=== PATIENT | female | born 1935 | race Caucasian/White ===

== ENCOUNTER → 2016-11-26 | Day surgery (SDC) | payer OTHER ==
[2016-11-25 08:08] VITALS: Ht 153.7 cm; Wt 55.9 kg
[~2016-11-26] VITALS: Ht 153.7 cm; Wt 55.9 kg
[~2016-11-26] MED LIST: 500ML BSS 0.3ML EPI 1:1000PF IRRIG ONE; ACETAMINOPHEN 325 MG TAB PO PRN; AMVISC PLUS 0.8ML SYRINGE INT OCU ONE; APPL300T3 PO; ATROPINE SULFATE 0.1 MG/ML 5ML SYR IV PRN; AcetaZOLAMIDE 250 MG TAB PO SCH; BEE1CAP PO; BETAXOLOL HCL 0.25% OP SUSP PER DROP CHARGE OPL SCH; BRIMONIDINE TART 0.2% OP SOLN PER DROP CHARGE ONE; BSS FLUSH ONE; CALC-51 PO; CHOL1TAB42 PO; CLR10 PO; COCO1OIL2 PO; CRAN1TAB PO; CYCLOPENTOLATE HCL 1% OP SOLN PER DROP CHARGE OPL SCH; DIPH1TAB PO; ENDOCOAT 0.85ML SYRINGE INT OCU ONE; EpHEDrine SULFATE INJ 50 MG/ML AMP IV PRN; EpINEphrine INJ 1MG/ML AMP 1 MG/ML AMP ONE; GARL500T PO; HOME1SUB13 PO; HOMETAB PO; LACTATED RINGER'S 1000ML 500 ML IV SCH; LEVO75TA5 PO; LEVO88TA3 PO; LIDOCAINE 4% OP SOLN DROP CHARGE ONE; LIDOCAINE 4% OP SOLN DROP CHARGE OPL SCH; LIDOCAINE HCL 1% MPF 2 ML VIAL ONE; LISI-725 PO; LUNG SUPPORT PO; MIDAZOLAM HCL 1 MG/ML 2ML VIAL ONE; MISC1CAP69 PO; MISCCAP PO; MISCCAP80 PO; MIX: 4ML BSS 1ML EPI 1:1000 PF INSTIL ONE; MOXIFLOXACIN OPH SOLN PER DROP CHARGE ONE; MOXIFLOXACIN OPH SOLN PER DROP CHARGE OPL SCH; NURSING VERBAL MED ORDER ONE; OCUCOAT 1 ML SOLN IO ONE; ONDANSETRON INJ 2 MG/ML 2 ML VIAL IV PRN; PHENYLEPHRINE HCL 2.5% OP SOLN PER DROP CHARGE OPL SCH; POVIDONE-IODINE OP SOLN 30 ML BTL ONE; PROPARACAINE 0.5% OP SOLN PER DROP CHARGE OPL SCH; SODIUM CHLORIDE 0.9% 500ML IV SCH; TOBRAMYCIN/DEXAMETHASONE OPH OINT PER APPLN CHARGE ONE; TROPICAMIDE 1% OP SOLN PER DROP CHARGE OPL SCH; VITATAB11 PO; [UNRECOGNIZED DRUG - CODE] PO; [UNRECOGNIZED DRUG - CODE] PO; [UNRECOGNIZED DRUG - OTHER] PO; [UNRECOGNIZED DRUG - OTHER] PO
--- NOTE | 2016-11-26 08:08 | History & Physical Bridge - [place] ---
H&P Re-Evaluation Bridge Note: I have examined the patient, reviewed the History & Physical and in the interval since the performance of the History & Physical I have noted the following changes of clinical significance: No changes noted
[2016-11-26] MEDS: PHENYLEPHRINE HCL 2.5% OP SOLN PER DROP CHARGE OPL SCH ×2 (08:39→08:43)
[2016-11-26] MEDS: TROPICAMIDE 1% OP SOLN PER DROP CHARGE OPL SCH ×2 (08:40→08:44)
[2016-11-26] MEDS: CYCLOPENTOLATE HCL 1% OP SOLN PER DROP CHARGE OPL SCH ×2 (08:41→08:45)
[2016-11-26] MEDS: MOXIFLOXACIN OPH SOLN PER DROP CHARGE OPL SCH ×2 (08:42→08:47)
--- NOTE | 2016-11-26 09:24 | Discharge Instructions-SurgCtr ---
Discharge Instructions Date of Service Nov 26, 2016. Visit Reason for Visit: Left Cataract Discharge Discharge Diagnosis / Problem: lens implant left eye Discharge Goals Goal(s): Improve function Activity Recommendations Activity Limitations: resume your previous activity Lifting Limitations: no more than 10 pounds Exercise/Sports Limitations: gradually increase as tolerated May Resume Sexual Activity: when tolerated Shower/Bathe: tomorrow Driving or Machine Use: resume 1 day after discharge Anesthesia . Post Anesthesia Instructions: If you have had General Anesthesia or IV Sedation: * Do not drive today. * Resume driving when surgeon permits. * Do not make important decisions or sign legal documents today. * Call surgeon for: 1. Temperature elevations greater than 101 degrees F. 2. Uncontrollable pain. 3. Excessive bleeding. 4. Persistent nausea and vomiting. 5. Medication intolerance (nausea, vomiting or rash). * For nausea and vomiting use only clear liquids such as: tea, soda, bouillon until nausea subsides, then gradually increase diet as tolerated. * If you have any concerns or questions, call your surgeon's office. If physician is unavailable and it is an emergency, call 911 or go to the nearest emergency room. . Instructions / Follow-Up Instructions / Follow-Up ACTIVITY RECOMMENDATIONS: * Light activities. * Mild irritation and blurred vision are common for the first few days. * You may walk outside, read, watch television. * Redness around the white part of the eye is common. MEDICATIONS: Resume previous medications unless instructed otherwise by your surgeon. * Take white Diamox (Acetazolamide) tablet at 1 pm today. Start all eye drops at 1 pm today: * Eye drops (today and tomorrow): Prednisone - one drop in operative eye every 3 hours while awake Ofloxacin - one drop in operative eye every 3 hours while awake SPECIAL CARE INSTRUCTIONS: * Tape plastic shield over eye to sleep at night. Call your doctor at with any concerns or problems. FOLLOW UP VISIT: Follow-up with Dr Scott at [place] office as scheduled. Diet Recommendations Home Diet: no limitations Procedures Procedures Performed: cataract extraction with lens implant Pending Studies Studies pending at discharge: no Medical Emergencies . Who to Call and When: Medical Emergencies: If at any time you feel your situation is an emergency, please call 911 immediately. . Non-Emergent Contact Non-Emergency issues call your: Assistant Women'S Rowing Coach Call Non-Emergent contact if: your pain is not controlled [phone] . . "Provider Documentation" section prepared by Justin Scott. .
--- NOTE | 2016-11-26 09:26 | [facility] Operative Report ---
Operative Report Date of Service Nov 26, 2016. Operative Report 1. PREOPERATIVE DIAGNOSIS: Senile nuclear cataract, left eye. 2. POSTOPERATIVE DIAGNOSIS: Senile nuclear cataract, left eye. 3. PROCEDURE: Phacoemulsification of left cataract with posterior chamber lens implant, type Bausch [employer] Lomb, model MX60, power +22.5 diopters. ANESTHESIA: Local standby. SURGEON: Dr. Scott. COMPLICATIONS: None. OPERATING TIME: 10 minutes. 4. OPERATION AND FINDINGS: DESCRIPTION OF PROCEDURE: The left pupil was dilated. The anesthetic was administered using a topical technique. The left eye was prepped and draped. A speculum was placed. A clear corneal incision was formed. The chamber was filled with Amvisc Plus and Endocoat. Epinephrine solution was used. A paracentesis was placed. A capsulorrhexis was performed. The nucleus was hydrodissected. The lens was removed with phacoemulsification. Time was 5.80 seconds. The aspiration unit was used to remove the cortex. The capsule was filled with Amvisc Plus. The lens implant was folded and placed into the capsule. The incision was hydrated. The Amvisc was aspirated. The wound was secure. The chamber was deep. The pupil was round. Brimonidine, TobraDex ointment and Vigamox solution were placed. The speculum was removed. The patient was returned to the Recovery Room in stable condition. I attest to the content of the Intraoperative Record and any orders documented therein. Any exceptions are noted below. The scribe's documentation has been prepared in my presence, under my direction and personally reviewed by me in its entirety. I confirm that the note above accurately reflects all work, treatment, procedures, and medical decision making performed by me. I personally scribed for Justin Scott M.D. (LOVE) on 11/26/16 at 09:26. Electronically submitted by Maureen Bloom ([email or web address]).
[2016-11-26 09:30] VITALS: TEMP 36.8
[2016-11-26] MEDS: PROPARACAINE 0.5% OP SOLN PER DROP CHARGE OPL SCH ×2 (09:36→09:38)
[2016-11-26 10:02] VITALS: BP 148/79; PULSE 69; O2SAT 98
--- NOTE | 2016-11-26 10:03 | Anesthesia Progress Nt - [facility] ---
Anesthesia Post Op Note Date & Time Nov 26, 2016 at 10:03 Vital Signs Pain Intensity: 0 Vital Signs Past 12 Hours Date Time Temp Pulse Resp B/P (MAP) Pulse Ox O2 Delivery O2 Flow Rate FiO2 11/26/16 10:02 69 18 148/79 (102) 98 Room Air 11/26/16 09:30 36.8 73 16 133/75 (94) 96 Room Air 11/26/16 08:25 36.5 79 16 173/75 (107) 98 Room Air Notes Mental Status: alert / awake / arousable, participated in evaluation Pt Amnestic to Procedure: Yes Nausea / Vomiting: adequately controlled Pain: adequately controlled Airway Patency, RR, SpO2: stable & adequate BP & HR: stable & adequate Hydration State: stable & adequate Anesthetic Complications: no major complications apparent
== END | disposition home or self-care (01) ==
LOC: X.SURG 08:08
PROVIDERS: ATTEND Specialist
DX: H25.12 Age-related nuclear cataract, left eye (principal); I10 Essential (primary) hypertension; Z79.899 Other long term (current) drug therapy

== ENCOUNTER → 2016-12-10 | Day surgery (SDC) | payer OTHER ==
[2016-12-03 09:59] VITALS: Ht 153.7 cm; Wt 55.9 kg
[~2016-12-10] VITALS: Ht 153.7 cm; Wt 55.9 kg
[~2016-12-10] MED LIST changes: +AcetylCHOLine CHL OP SOL 1:100 2 ML BTL ONE; -BETAXOLOL HCL 0.25% OP SUSP PER DROP CHARGE OPL SCH; +BETAXOLOL HCL 0.25% OP SUSP PER DROP CHARGE OPR SCH; -CYCLOPENTOLATE HCL 1% OP SOLN PER DROP CHARGE OPL SCH; +FENTANYL CITRATE INJ 50 MCG/1 ML 2 ML VIAL ONE; -LIDOCAINE 4% OP SOLN DROP CHARGE OPL SCH; +LIDOCAINE 4% OP SOLN DROP CHARGE OPR SCH; -MOXIFLOXACIN OPH SOLN PER DROP CHARGE OPL SCH; -ONDANSETRON INJ 2 MG/ML 2 ML VIAL IV PRN; -PHENYLEPHRINE HCL 2.5% OP SOLN PER DROP CHARGE OPL SCH; -PROPARACAINE 0.5% OP SOLN PER DROP CHARGE OPL SCH; +PROPARACAINE 0.5% OP SOLN PER DROP CHARGE OPR SCH; -SODIUM CHLORIDE 0.9% 500ML IV SCH; -TROPICAMIDE 1% OP SOLN PER DROP CHARGE OPL SCH
[2016-12-10] MEDS: PHENYLEPHRINE HCL 2.5% OP SOLN PER DROP CHARGE OPR SCH ×2 (12:19→12:24)
[2016-12-10] MEDS: TROPICAMIDE 1% OP SOLN PER DROP CHARGE OPR SCH ×2 (12:20→12:25)
[2016-12-10] MEDS: CYCLOPENTOLATE HCL 1% OP SOLN PER DROP CHARGE OPR SCH ×2 (12:21→12:26)
[2016-12-10] MEDS: MOXIFLOXACIN OPH SOLN PER DROP CHARGE OPR SCH ×2 (12:22→12:32)
--- NOTE | 2016-12-10 13:38 | Discharge Instructions-SurgCtr ---
Discharge Instructions Date of Service Dec 10, 2016. Visit Reason for Visit: Right Cataract Discharge Discharge Diagnosis / Problem: lens implant right eye Discharge Goals Goal(s): Improve function Activity Recommendations Activity Limitations: resume your previous activity Lifting Limitations: no more than 10 pounds Exercise/Sports Limitations: gradually increase as tolerated May Resume Sexual Activity: when tolerated Shower/Bathe: tomorrow Driving or Machine Use: resume 1 day after discharge Anesthesia . Post Anesthesia Instructions: If you have had General Anesthesia or IV Sedation: * Do not drive today. * Resume driving when surgeon permits. * Do not make important decisions or sign legal documents today. * Call surgeon for: 1. Temperature elevations greater than 101 degrees F. 2. Uncontrollable pain. 3. Excessive bleeding. 4. Persistent nausea and vomiting. 5. Medication intolerance (nausea, vomiting or rash). * For nausea and vomiting use only clear liquids such as: tea, soda, bouillon until nausea subsides, then gradually increase diet as tolerated. * If you have any concerns or questions, call your surgeon's office. If physician is unavailable and it is an emergency, call 911 or go to the nearest emergency room. . Instructions / Follow-Up Instructions / Follow-Up ACTIVITY RECOMMENDATIONS: * Light activities. * Mild irritation and blurred vision are common for the first few days. * You may walk outside, read, watch television. * Redness around the white part of the eye is common. MEDICATIONS: Resume previous medications unless instructed otherwise by your surgeon. * Take white Diamox (Acetazolamide) tablet at 3 pm today. Start all eye drops at 3 pm today: * Eye drops (today and tomorrow): Prednisone - one drop in operative eye every 3 hours while awake Ofloxacin - one drop in operative eye every 3 hours while awake SPECIAL CARE INSTRUCTIONS: * Tape plastic shield over eye to sleep at night. Call your doctor at with any concerns or problems. FOLLOW UP VISIT: Follow-up with Dr Scott at [place] office as scheduled. Diet Recommendations Home Diet: no limitations Procedures Procedures Performed: cataract extraction with lens implant Pending Studies Studies pending at discharge: no Medical Emergencies . Who to Call and When: Medical Emergencies: If at any time you feel your situation is an emergency, please call 911 immediately. . Non-Emergent Contact Non-Emergency issues call your: Food Broker Call Non-Emergent contact if: your pain is not controlled [phone] . . "Provider Documentation" section prepared by Justin Scott. .
--- NOTE | 2016-12-10 13:43 | [facility] Operative Report ---
Operative Report Date of Service Dec 10, 2016. Operative Report 1. PREOPERATIVE DIAGNOSIS: Senile nuclear cataract, right eye. 2. POSTOPERATIVE DIAGNOSIS: Senile nuclear cataract, right eye. 3. PROCEDURE: Phacoemulsification of right cataract with posterior chamber lens implant, type Bausch [employer] Lomb, model MX60, power +21.5 diopters. ANESTHESIA: Local standby. SURGEON: Dr. Scott. COMPLICATIONS: None. OPERATING TIME: 15 minutes. 4. OPERATION AND FINDINGS: DESCRIPTION OF PROCEDURE: The right pupil was dilated. The anesthetic was administered using a topical technique. The right eye was prepped and draped. A speculum was placed. A clear corneal incision was formed. The chamber was filled with Amvisc Plus and Endocoat. Epinephrine solution was used. A paracentesis was placed. A capsulorrhexis was performed. The nucleus was hydrodissected. A dense lens was removed with phacoemulsification. Time was 10.08 seconds. The aspiration unit was used to remove the cortex. There was an opening in the posterior capsule without vitreous to the incision. The capsule was filled with Amvisc Plus. The lens implant was folded and placed into the capsule. The incision was hydrated. The Amvisc was aspirated. The wound was secured with ReSure. The chamber was deep. Miochol was irrigated into the chamber. The pupil was round. Brimonidine, TobraDex ointment and Vigamox solution were placed. The speculum was removed. The patient was returned to the Recovery Room in stable condition. I attest to the content of the Intraoperative Record and any orders documented therein. Any exceptions are noted below. The scribe's documentation has been prepared in my presence, under my direction and personally reviewed by me in its entirety. I confirm that the note above accurately reflects all work, treatment, procedures, and medical decision making performed by me. I personally scribed for Justin Scott M.D. (LOVE) on 12/10/16 at 13:43. Electronically submitted by Maureen LUBIN).
[2016-12-10 13:44] VITALS: TEMP 36.5
--- NOTE | 2016-12-10 13:46 | Anesthesia Progress Nt - [facility] ---
Anesthesia Post Op Note Date & Time Dec 10, 2016 at 13:46 Vital Signs Pain Intensity: 0 Vital Signs Past 12 Hours Date Time Temp Pulse Resp B/P (MAP) Pulse Ox O2 Delivery O2 Flow Rate FiO2 12/10/16 12:07 36.8 78 16 162/75 (104) 97 Room Air Notes Mental Status: alert / awake / arousable, participated in evaluation Pt Amnestic to Procedure: Yes Nausea / Vomiting: adequately controlled Pain: adequately controlled Airway Patency, RR, SpO2: stable & adequate BP & HR: stable & adequate Hydration State: stable & adequate Anesthetic Complications: no major complications apparent
[2016-12-10] MEDS: PROPARACAINE 0.5% OP SOLN PER DROP CHARGE OPR SCH ×2 (13:52→13:54)
[2016-12-10 14:19] VITALS: BP 132/66; PULSE 71; O2SAT 96
== END | disposition home or self-care (01) ==
LOC: X.SURG 11:11
PROVIDERS: ATTEND Specialist
DX: H25.11 Age-related nuclear cataract, right eye (principal); I10 Essential (primary) hypertension

== ENCOUNTER 2019-02-03 06:32 | Inpatient (IN) ==
--- NOTE | 2019-01-09 19:54 | PAT Medication Instructions ---
Medication Instructions Date of Service January 09, 2019 Home Medications levothyroxine 75 mcg PO QAM 01/07/19 [History Confirmed 01/07/19] Take morning of surgery With a small sip of water, OTHERWISE NOTHING TO EAT OR DRINK AFTER MIDNIGHT: levothyroxine 75 mcg PO QAM 01/07/19 [History Confirmed 01/07/19] Other Notes If you have any questions please call us at [phone] or [phone] or [phone] or [phone]
--- NOTE | 2019-01-10 11:11 | Anesthesiology Consultation ---
Date of Service January 10, 2019 Assessment & Plan (1) Encounter for pre-operative examination: Chart Review Chart Review: Pending: Refer to Additional Notes / Consult section (pending preop testing (labs, EKG, CXR)) and Patient seen in Pre Admission Testing Teaching & Discussion Pre-Anesthesia Teaching/Discussion Notes: Instructed NPO after midnight before surgery,except medications with 15 cc of water. Medication instructions provide d according to the PAT guidelines. History Surgery Operation Date: 02/03/19 13:20 Proposed Procedures p Left Total Knee Arthroplasty - Nash Strickland MD Height/Weight Height: 5 ft Weight: 57.6 kg Allergies Allergy/AdvReac Type Severity Reaction Status Date / Time No Known Allergies Allergy Unverified 01/07/19 15:22 Medications Home Medications Medication Instructions Recorded Confirmed Last Taken levothyroxine 75 mcg PO QAM 01/07/19 01/07/19 Unknown Cardio Cover 1 tab PO QAM 01/10/19 01/10/19 Unknown Lung Support 1 tab PO BID 01/10/19 01/10/19 Unknown calcium carbonate [Calcium 500] 1,000 mg PO BID 01/10/19 01/10/19 Unknown szzrbktdf-ymadonaj-zsh-hyalur 1 tab PO BID 01/10/19 01/10/19 Unknown [Joint Health] cholecalciferol (vitamin D3) 5,000 unit PO HS 01/10/19 01/10/19 Unknown [Vitamin D3] cod liver oil 1 cap PO BID 01/10/19 01/10/19 Unknown cranberry 500 mg PO DAILY 01/10/19 01/10/19 Unknown garlic 500 mg PO BID 01/10/19 01/10/19 Unknown lactobacillus combination no.4 3,000 mmu cells PO QAM 01/10/19 01/10/19 Unknown [Probiotic] magnesium oxide 400 mg PO BID 01/10/19 01/10/19 Unknown milk uwlpaps-IEF-ddtixc-turmer 1 mg PO BID 01/10/19 01/10/19 Unknown [Liver Complex] potassium 99 mg PO BID 01/10/19 01/10/19 Unknown Past Medical History Medical History GERD (gastroesophageal reflux disease) rare Hearing deficit B/L KNAPP History of skin cancer History of thyroid cancer s/p surgery, radioactive iodine treatment Hyperlipidemia Hypothyroidism s/p surgery, radioactive iodine treatment Kidney stone Osteoarthritis Exercise / Class Metabolic Activity III < 4 Walking/Shop/Light housework Past Family History Family History Sister Family history of diabetes mellitus Past Surgical History Surgical History History of D&C History of arthroplasty of right knee History of bladder repair surgery History of cardiac cath 10+ years ago= no stents History of cataract surgery History of colonoscopy History of lumpectomy of left breast "BENIGN" History of repair of rectocele History of thyroidectomy partial- subsequently removed remaining portion Status post IGGY-BSO Status post surgical removal of malignant neoplasm of skin Past Anesthesia History No Hx of Anesthesia Complications and No Family Hx of Anesthesia Complications History of PONV No Hx of PONV and No Hx of Motion Sickness Social History Smoking Status: Never smoker Do You Dip or Chew Tobacco: No Hx Alcohol Use: No Hx Substance Use: No substance use type: does not use Review of Systems Rare reflux. Patient denies chest pain, shortness of breath, cough, wheezing, palpitations. Physical Exam Vital Signs VITALS BP 175/76; manual recheck on right: 158/68 (Patient advised to followup with PCP regarding elevated BP) P 69 TEMP 98.2 SP02 96%RA RESP 18 PHYSICAL Full neck and c-spine range of motion. Full TMJ range of motion. TMD 4 finger breaths Mallampati Score 1 Dentition: partials upper/lower Lungs: clear throughout to auscultation Cardiac: regular rate and rhythm, I/ systolic murmur Spine: normal Carotid arteries: negative bruit Extremities: no edema
--- NOTE | 2019-01-10 12:01 | XRay Report ---
XR chest Pre-admission PA/Lat HISTORY: 83 years-old Female PAT preoperative exam. No acute chest complaints COMPARISON: None available TECHNIQUE: PA and lateral views of the chest FINDINGS: Cardiomediastinal and hilar silhouettes are within normal limits. Calcified plaque of the thoracic ao rtic arch. Mild linear subsegmental bibasilar opacities suggest areas of atelectasis/scarring. No pne umothorax, pleural effusion, focal airspace consolidation or overt pulmonary edema. Mild hyperinflati on with diaphragmatic flattening. Degenerative changes of the shoulders and spine. IMPRESSION: No acute process. The above report was generated using voice recognition software. It may contain grammatical, syntax o r spelling errors. Electronically signed by: Vamsi De La Rosa M.D. 01/10/2019 12:00 PM
[2019-01-10 12:59] LABS: Basophils # (auto) 0.01 K/uL (0-0.2); Basophils % (auto) 0.2 %; Eosinophils # (auto) 0.03 K/uL (0-0.5); Eosinophils % (auto) 0.6 %; Hematocrit (blood only) 44.7 % (37-47); Hemoglobin 14.8 g/dL (12.0-16.0); Immature Granulocytes # (auto) 0.03 K/uL (0.00-0.02); Immature Granulocytes % (auto) 0.6 %; Lymphocytes # (auto) 0.69 K/uL (1.2-3.4); Lymphocytes % (auto) 13.7 %; Mean Corpuscular Hemoglobin 30.7 pg (25-34); Mean Corpuscular Hgb Conc 33.1 g/dL (32-36); Mean Corpuscular Volume 92.7 fL (80-100); Mean Platelet Volume 10.6 fL (7.4-10.4); Monocytes # (auto) 0.47 K/uL (0.11-0.59); Monocytes % (auto) 9.3 %; Neutrophils % (auto) 75.6 %; Platelet Count 209 K/uL (130-400); RDW Coefficient of Variation 12.8 % (11.5-14.5); RDW Standard Deviation 43.1 fL (36.4-46.3); Red Blood Count 4.82 M/uL (4.2-5.4); White Blood Count 5.03 K/uL (4.8-10.8)
[2019-01-10 13:13] LABS: Appearance Urine Cloudy (Clear); Bacteria Urine Automated Negative (Negative); Bilirubin Urine Negative (Negative); Blood Urine Trace (Negative); Cast Urine Automated 0 /lpf (0-5); Color Urine Yellow; Glucose Urine UA Negative (Negative); Ketones Urine Negative (Negative); Leukocyte Esterase Urine Negative (Negative); Nitrite Urine Negative (Negative); Partial Thromboplastin Ratio 1.1; Partial Thromboplastin Time 30.9 Seconds (21.0-31.0); Protein Urine Negative (Negative); Prothrombin Time 10.3 Seconds (9.0-12.0); Specific Gravity Urine 1.018 (1.000-1.030); Urobilinogen Urine Negative (Negative); pH Urine 7.5 (4.5-7.5)
[2019-01-10 13:25] LABS: BUN Creatinine Ratio 20.8 (10-20); Calcium 8.9 mg/dl (8.5-10.1); Creatinine Clr Calc Pharmacy 44.6 ml/min; Est GFR (African American) 84.1; Est GFR (Non-African American) 72.5; Potassium 3.6 mmol/L (3.5-5.1)
[2019-01-10 13:30] LABS: Estimated Average Glucose 126 mg/dl
--- NOTE | 2019-01-13 15:25 | History & Physical Report ---
Date of Service January 13, 2019 Assessment & Plan (1) Primary osteoarthritis of left knee: Treatment options were discussed. Patient has failed conservative measures as above. She would like to proceed with surgical management. Risks, benefits and alternatives to surgery including but not limited to infection, DVT, pain, stiffness, need for revision surgery, damage to blood vessels, damage to nerves, PE, , were discussed with the patient and they wish to proceed. Plan will be for left total knee arthroplasty on 02/03/19. Plans on inpatient rehab at [facility]-currently lives at [facility] in a [facility] [place]. Will plan on aspirin 81mg BID x 30 days post operatively. All questions were answered. She will follow up in the office post operatively. History of Present Illness Chief Complaint: Left knee pain Primary Care Provider: Dinoraana Andujar Patient is 83 year old female with PMHx significant for high cholesterol, GERD, kidney stones, thyroid Ca, hypothyroidism with complaints of bilateral knee pain, left worse than right. Previously has had cortisone injections without any relief. Her pain interferes with her activities of daily living. She would like to proceed with knee replacement. Patient denies headaches, sweats, fevers, chills, double vision, blurred vision, cough, sore throat, dysphagia, chest pain, sob, wheezing, n/v/d/c, numbness, tingling, fatigue, urinary symptoms, mood disorders. ROS positive for bilateral knee pain and stiffness. Allergies Allergy/AdvReac Type Severity Reaction Status Date / Time No Known Allergies Allergy Unverified 01/07/19 15:22 Home Medications Home Medications Medication Instructions Recorded Confirmed Type levothyroxine 75 mcg PO QAM 01/07/19 01/07/19 History Cardio Cover 1 tab PO QAM 01/10/19 01/10/19 History Lung Support 1 tab PO BID 01/10/19 01/10/19 History calcium carbonate [Calcium 500] 1,000 mg PO BID 01/10/19 01/10/19 History byxqnwigu-bdpnodbm-tjj-hyalur 1 tab PO BID 01/10/19 01/10/19 History [Joint Health] cholecalciferol (vitamin D3) 5,000 unit PO HS 01/10/19 01/10/19 History [Vitamin D3] cod liver oil 1 cap PO BID 01/10/19 01/10/19 History cranberry 500 mg PO DAILY 01/10/19 01/10/19 History garlic 500 mg PO BID 01/10/19 01/10/19 History lactobacillus combination no.4 3,000 mmu cells PO QAM 01/10/19 01/10/19 History [Probiotic] magnesium oxide 400 mg PO BID 01/10/19 01/10/19 History milk evrembs-LEB-xmaifd-turmer 1 mg PO BID 01/10/19 01/10/19 History [Liver Complex] potassium 99 mg PO BID 01/10/19 01/10/19 History Past Med/Surg History Medical History GERD (gastroesophageal reflux disease) rare Hearing deficit B/L KNAPP History of skin cancer History of thyroid cancer s/p surgery, radioactive iodine treatment Hyperlipidemia Hypothyroidism s/p surgery, radioactive iodine treatment Kidney stone Osteoarthritis Surgical History History of D&C History of arthroplasty of right knee History of bladder repair surgery History of cardiac cath 10+ years ago= no stents History of cataract surgery History of colonoscopy History of lumpectomy of left breast "BENIGN" History of repair of rectocele History of thyroidectomy partial- subsequently removed remaining portion Status post IGGY-BSO Status post surgical removal of malignant neoplasm of skin Family History Sister Family history of diabetes mellitus Social History Preferred Language: [place] Communication Ability: Effective Bathing Suit Maker Required: No Beliefs That Will Affect Care: None Current Living Situation: Alone Other Information That Helps Us Care for You: No Feels Safe at Home: Yes Safety Concerns: Feels Safe At This Time Smoking Status: Never smoker Do You Dip or Chew Tobacco: No ; Second Hand Exposure: Yes (PREVIOUS EXPOSURE AT THE WORKPLACE) ; Hx Alcohol Use: No Hx Substance Use: No Review of Systems All systems reviewed & are unremarkable except as noted in HPI & below Physical Exam Constitutional: well developed and well nourished; no acute distress Eyes: PERRL, conjunctivae normal, anicteric sclerae ENMT: external ear and nose normal, oropharynx normal Neck: trachea midline, no thyromegaly Respiratory: normal respiratory effort, lungs clear to auscultation Cardiovascular: RRR, no murmur, no edema Musculoskeletal: Left knee-Tenderness medial joint line, ROM 0-130 with crepitus, mild effusion. Stable to valgus and varus stress tests. Yaritza's positive. Skin: no rashes, warm and dry Neurologic: patellar DTR's 2+ bilat, sensation intact Psychiatric: A+Ox3, euthymic affect Results & Data Laboratory Results Lab Results 01/10/19 01/10/19 01/10/19 Range/Units 11:43 11:43 11:43 WBC 5.03 (4.8-10.8) K/uL RBC 4.82 (4.2-5.4) M/uL Hgb 14.8 (12.0-16.0) g/dL Hct 44.7 (37-47) % MCV 92.7 (80-100) fL MCH 30.7 (25-34) pg MCHC 33.1 (32-36) g/dL RDW Std Deviation 43.1 (36.4-46.3) fL RDW Coeff of Michelet 12.8 (11.5-14.5) % Plt Count 209 (130-400) K/uL MPV 10.6 H (7.4-10.4) fL Immature Gran % (Auto) 0.6 % Neut % (Auto) 75.6 % Lymph % (Auto) 13.7 % [place] % (Auto) 9.3 % Eos % (Auto) 0.6 % Baso % (Auto) 0.2 % Immature Gran # (Auto) 0.03 H (0.00-0.02) K/uL Neut # (Auto) 3.80 (1.4-6.5) K/uL Lymph # (Auto) 0.69 L (1.2-3.4) K/uL [place] # (Auto) 0.47 (0.11-0.59) K/uL Eos # (Auto) 0.03 (0-0.5) K/uL Baso # (Auto) 0.01 (0-0.2) K/uL PT 10.3 (9.0-12.0) Seconds INR 1.0 (0.9-1.1) APTT 30.9 (21.0-31.0) Seconds PTT Ratio 1.1 Sodium 138 (136-145) mmol/L Potassium 3.6 (3.5-5.1) mmol/L Chloride 102 (98-107) mmol/L Carbon Dioxide 27 (21-32) mmol/L Anion Gap 9.0 (3-11) BUN 16 (7-18) mg/dl Creatinine 0.76 (0.6-1.2) mg/dl Est Cr Clr Drug Dosing 44.6 ml/min Est GFR ( Amer) 84.1 Est GFR (Non-Af Amer) 72.5 BUN/Creatinine Ratio 20.8 H (10-20) Glucose 87 (70-99) mg/dl Estimat Average Glucose mg/dl Hemoglobin A1c (4.5-5.6) % Calcium 8.9 (8.5-10.1) mg/dl Albumin 4.0 (3.4-5.0) gm/dl Urine Color Urine Appearance (Clear) Urine pH (4.5-7.5) Ur Specific [place] (1.000-1.030) Urine Protein (Negative) Urine Glucose (UA) (Negative) Urine Ketones (Negative) Urine Blood (Negative) Urine Nitrite (Negative) Urine Bilirubin (Negative) Urine Urobilinogen (Negative) Ur Leukocyte Esterase (Negative) Urine WBC (Auto) (0-5) /hpf Urine RBC (Auto) (0-4) /hpf U Hyaline Cast (Auto) (0-5) /lpf U Epithel Cells (Auto) (0-5) /lpf Urine Bacteria (Auto) (Negative) Blood Type Antibody Screen 01/10/19 01/10/19 01/10/19 Range/Units 11:43 11:43 11:43 WBC (4.8-10.8) K/uL RBC (4.2-5.4) M/uL Hgb (12.0-16.0) g/dL Hct (37-47) % MCV (80-100) fL MCH (25-34) pg MCHC (32-36) g/dL RDW Std Deviation (36.4-46.3) fL RDW Coeff of Michelet (11.5-14.5) % Plt Count (130-400) K/uL MPV (7.4-10.4) fL Immature Gran % (Auto) % Neut % (Auto) % Lymph % (Auto) % [place] % (Auto) % Eos % (Auto) % Baso % (Auto) % Immature Gran # (Auto) (0.00-0.02) K/uL Neut # (Auto) (1.4-6.5) K/uL Lymph # (Auto) (1.2-3.4) K/uL [place] # (Auto) (0.11-0.59) K/uL Eos # (Auto) (0-0.5) K/uL Baso # (Auto) (0-0.2) K/uL PT (9.0-12.0) Seconds INR (0.9-1.1) APTT (21.0-31.0) Seconds PTT Ratio Sodium (136-145) mmol/L Potassium (3.5-5.1) mmol/L Chloride (98-107) mmol/L Carbon Dioxide (21-32) mmol/L Anion Gap (3-11) BUN (7-18) mg/dl Creatinine (0.6-1.2) mg/dl Est Cr Clr Drug Dosing ml/min Est GFR ( Amer) Est GFR (Non-Af Amer) BUN/Creatinine Ratio (10-20) Glucose (70-99) mg/dl Estimat Average Glucose 126 mg/dl Hemoglobin A1c 6.0 H (4.5-5.6) % Calcium (8.5-10.1) mg/dl Albumin (3.4-5.0) gm/dl Urine Color Yellow Urine Appearance Cloudy A (Clear) Urine pH 7.5 (4.5-7.5) Ur Specific [place] 1.018 (1.000-1.030) Urine Protein Negative (Negative) Urine Glucose (UA) Negative (Negative) Urine Ketones Negative (Negative) Urine Blood Trace H (Negative) Urine Nitrite Negative (Negative) Urine Bilirubin Negative (Negative) Urine Urobilinogen Negative (Negative) Ur Leukocyte Esterase Negative (Negative) Urine WBC (Auto) 1-5 (0-5) /hpf Urine RBC (Auto) 5-10 H (0-4) /hpf U Hyaline Cast (Auto) 0 (0-5) /lpf U Epithel Cells (Auto) 10-20 H (0-5) /lpf Urine Bacteria (Auto) Negative (Negative) Blood Type O Positive Antibody Screen NEGATIVE Diagnostic Findings Left knee radiographs: Tricompartmental degenerative changes, [id number] lateral compartment with osteophyte formation off lateral femoral condyle and lateral tibial plateau.
[~2019-02-03 06:32] MED LIST changes: -500ML BSS 0.3ML EPI 1:1000PF IRRIG ONE; -ACETAMINOPHEN 325 MG TAB PO PRN; +ACETAMINOPHEN 500 MG TAB PO SCH; -AMVISC PLUS 0.8ML SYRINGE INT OCU ONE; -APPL300T3 PO; -ATROPINE SULFATE 0.1 MG/ML 5ML SYR IV PRN; -AcetaZOLAMIDE 250 MG TAB PO SCH; -AcetylCHOLine CHL OP SOL 1:100 2 ML BTL ONE; -BEE1CAP PO; -BETAXOLOL HCL 0.25% OP SUSP PER DROP CHARGE OPR SCH; -BRIMONIDINE TART 0.2% OP SOLN PER DROP CHARGE ONE; -BSS FLUSH ONE; -CALC-51 PO; +CEFAZOLIN 1000MG 1,000 MG/7.5 ML SYR IV SCH; -CHOL1TAB42 PO; -CLR10 PO; -COCO1OIL2 PO; -CRAN1TAB PO; +CeleBREX 200 MG CAP PO SCH; -DIPH1TAB PO; -ENDOCOAT 0.85ML SYRINGE INT OCU ONE; -EpHEDrine SULFATE INJ 50 MG/ML AMP IV PRN; -EpINEphrine INJ 1MG/ML AMP 1 MG/ML AMP ONE; +FAMOTIDINE 20 MG TAB PO SCH; -FENTANYL CITRATE INJ 50 MCG/1 ML 2 ML VIAL ONE; +GABAPENTIN 900 MG DOSE PO SCH; -GARL500T PO; -HOME1SUB13 PO; -HOMETAB PO; -LACTATED RINGER'S 1000ML 500 ML IV SCH; -LEVO75TA5 PO; -LEVO88TA3 PO; -LIDOCAINE 4% OP SOLN DROP CHARGE ONE; -LIDOCAINE 4% OP SOLN DROP CHARGE OPR SCH; -LIDOCAINE HCL 1% MPF 2 ML VIAL ONE; -LISI-725 PO; +LR 500ML BOLUS, THEN 15ML/HR IV SCH; -LUNG SUPPORT PO; +METOCLOPRAMIDE HCL 10 MG TABLET PO SCH; -MIDAZOLAM HCL 1 MG/ML 2ML VIAL ONE; -MISC1CAP69 PO; -MISCCAP PO; -MISCCAP80 PO; -MIX: 4ML BSS 1ML EPI 1:1000 PF INSTIL ONE; -MOXIFLOXACIN OPH SOLN PER DROP CHARGE ONE; -NURSING VERBAL MED ORDER ONE; -OCUCOAT 1 ML SOLN IO ONE; +OXYCODONE HCL 10 MG TABCR (OXYCONTIN) PO SCH; -POVIDONE-IODINE OP SOLN 30 ML BTL ONE; -PROPARACAINE 0.5% OP SOLN PER DROP CHARGE OPR SCH; +ROPIVACAINE 0.5% HCL/PF 150 MG, BUPIVACAINE 0.5% MPF 30 ML, EPINEPHrine 30MG/30ML (OR U... INSTIL SCH; -TOBRAMYCIN/DEXAMETHASONE OPH OINT PER APPLN CHARGE ONE; +TRANEXAMIC ACID 1,000 MG **IV Intra-op IV SCH; +TRANEXAMIC ACID 1,000 MG **IV Pre-op IV SCH; -VITATAB11 PO; -[UNRECOGNIZED DRUG - CODE] PO; -[UNRECOGNIZED DRUG - CODE] PO; -[UNRECOGNIZED DRUG - OTHER] PO; -[UNRECOGNIZED DRUG - OTHER] PO
[2019-02-03] MEDS ORDERED: BUPIVACAINE/EPINEPHRINE 0.25% 1:200,000 30 ML VIAL ONE (06:34)
[2019-02-03] MEDS ORDERED: BUPIVACAINE 0.5 % 5 MG/1 ML PF 10ML VIAL ONE (06:34)
--- NOTE | 2019-02-03 06:58 | History & Physical Bridge Note ---
Date of Service February 03, 2019 History & Physical Bridge Note I have examined the patient, reviewed the History & Physical and in the interval since the performance of the History & Physical I have noted the following changes of clinical significance: no changes noted
[2019-02-03] MEDS ORDERED: MIDAZOLAM HCL 1 MG/ML 2ML VIAL ONE (07:28)
[2019-02-03] MEDS ORDERED: fentaNYL citrate 100 MCG/2 ML VIAL ONE (07:28)
[2019-02-03] MEDS ORDERED: BACITRACIN INJ 50,000 UNIT VIAL ONE (08:14)
[2019-02-03] MEDS ORDERED: ORTHO JOINT ANESTHETIC ONE (08:14)
[2019-02-03] MEDS ORDERED: fentaNYL citrate 100 MCG/2 ML VIAL IV PRN (08:34)
[2019-02-03] MEDS ORDERED: ONDANSETRON INJ 2 MG/ML 2 ML VIAL IV PRN ×2 (08:34→12:38)
[2019-02-03] MEDS ORDERED: ePHEDrine sulfate 50 MG/ML AMP IV PRN (08:34)
[2019-02-03] MEDS ORDERED: HYDROmorphone INJ 1 MG/ML SYRINGE IV PRN (08:34)
[2019-02-03] MEDS ORDERED: ATROPINE SULFATE 0.1 MG/ML 10ML SYR IV PRN (08:34)
[2019-02-03] MEDS ORDERED: LIDOCAINE HCL 2% 2 ML VIAL/AMP(20MG/ML) INFIL ONE (09:52)
[2019-02-03] MEDS ORDERED: ONDANSETRON INJ 2 MG/ML 2 ML VIAL ONE (09:52)
[2019-02-03] MEDS ORDERED: PROPOFOL IV EMULSION 10 MG/ML 20 ML VIAL IV ONE (09:52)
[2019-02-03] MEDS ORDERED: DEXAMETHASONE SOD INJ 4 MG/ML VIAL ONE (09:52)
--- NOTE | 2019-02-03 10:41 | Operative Report ---
Post Operative Report Pre & Post Diagnosis Operation Date: 02/03/19 09:30 Pre-Op Diagnosis: Osteoarthritis, Left Knee Post-Op Diagnosis: Osteoarthritis, Left Knee I identified the patient and participated in the time-out.: Yes Procedure Operation Date: 02/03/19 09:30 Actual Procedures p Left Total Knee Arthroplasty(Left) - Nash Strickland MD Surgeon Nash Strickland MD Efficiency Clerk Pritesh Rawls PA-C Estimated Blood Loss 20 Findings Consistent with Post-Op Diagnosis Specimens Bone and tissue Drains 2 Hemovac Anesthesia Type Spinal MAC Complications none Disposition Accompanied Patient To Recovery: No Disposition: Recovery Room Indications The patient is an 83-year-old female long-standing arthritic change in both knees. She has pvpi-ut-[id number] lateral compartment osteophyte formation of all 3 compartments. She is failed conservative measures including injection, anti- inflammatories and rehab. She wishes to proceed with a left total knee arthropl asty. Description of Procedure Risks benefits and alternatives of surgery including but not limited to infection, DVT, pain, stiffness, need for surgery, damage to blood vessels, damage to nerves or risks of anesthesia were discussed with the patient and they wished to proceed. The patient was identified and the laterality was confirmed and marked. They received a preoperative antibiotic as well as a spinal anesthetic and an abductor canal block. A well-padded tourniquet was applied and then the limb was prepped and draped in standard manner with ChloraPrep. The limb was exsanguinated and the tourniquet was inflated. I made a standard anterior incision. I sharply incised the skin then utilized Bovie electrocautery to achieve hemostasis. I made a medial parapatellar arthrotomy and mobilized the patella laterally. I then excised the anterior horns of the medial and lateral meniscus as well as the infrapatellar fat pad. I elevated a portion of the MCL off of the tibia. I then pinned into place a patient-matched distal femoral cutting guide and made my distal femoral resection. I then pinned into place the 5 in 1 femoral cutting guide. I made my anterior, posterior and chamfer cuts. I then excised the cruciates and the remaining portions of the menisci. I then pinned into place a patient- matched tibial cutting guide and made my tibial resection. I then pinned into place the tibial plate a utilizing alignment bailee to confirm rotation. I then cut for the post. Utilizing a lamina legal manager and I then removed posterior osteophytes off the femur. I then placed a trial femur into position and cut for the trochlear component. I then sequentially trialed to size the polyethylene until there was good soft tissue balancing and range of motion. I then prepared the patella with a freehand cut utilizing sagittal saw. I sized and drilled for the patella. There was lateral tracking the patella. A lateral release was required. There is good tracking after the lateral release was performed. All the trial components were removed. The deep tissues were anesthetized with an ortho mix solution. Then with Simplex HV with gentamicin cement, I cemented my definitive components. Definitive components, Leong and Nephew Jerry 2: Femur 3 Tibia 2 Poly 11 Patella 32 oval A betadine soak was performed. A deep drain was placed. The arthrotomy was closed with interrupted #1 Vicryl suture subcutaneous tissue was closed with interrupted 2-0 Vicryl suture. The skin was closed with with edvin. An Acticoat and Mau dressing were placed. Sterile dressings were applied. All needle and sponge counts were correct at the end of the procedure patient was transferred to the PACU in stable condition without apparent complication. The PA-C was necessary for assistance with procedure for assistance in positioning, prepping, draping, retraction and closure. I attest to the content of the Intraoperative Record and any orders documented therein. Any exceptions are noted below.
--- NOTE | 2019-02-03 11:52 | Anesthesiology Progress Note ---
Date of Service February 03, 2019 Anesthesia Post Procedure Vital Signs Vital Signs: Temp Pulse Pulse Resp BP Pulse Ox 02/03/19 11:45 86 13 147/67 H 95 02/03/19 11:35 88 16 146/68 H 99 02/03/19 11:25 87 14 144/63 H 99 02/03/19 11:17 36.2 C L 99 H 13 148/62 H 98 02/03/19 07:20 36.6 C 88 20 179/81 H 95 Pain Intensity Left Knee: Pain Intensity: 0 Transfer of Care Handoff Completed per policy Notes Mental Status: alert / awake / arousable and participated in evaluation Patient Amnestic to Procedure: Yes Nausea / Vomiting: adequately controlled Pain: adequately controlled Airway Patency, RR, SpO2: stable & adequate BP & HR: stable & adequate Hydration State: stable & adequate Anesthetic Complications: no major complications apparent and Pt Satisfied with anesthetic care
--- NOTE | 2019-02-03 12:01 | XRay Report ---
XR knee LT 1 or 2V routine CLINICAL HISTORY: Surgical Post Op COMPARISON: None FINDINGS: Alignment of the total left knee arthroplasty is anatomic. There is no fracture or unexpec soledad radiopaque foreign body. Surgical drains are in place. There are skin edvin. IMPRESSION: Expected findings following total left knee arthroplasty. Electronically signed by: Flako Martinez M.D. 02/03/2019 12:00 PM
[2019-02-03] MEDS ORDERED: SODIUM CHLORIDE 0.9% 1000ML 1,000 ML IV SCH (12:38)
[2019-02-03] MEDS ORDERED: BISACODYL 10 MG SUPP PR PRN (12:38)
[2019-02-03] MEDS ORDERED: MAGNESIUM HYDROXIDE SUSP 30 ML UDC PO PRN (12:38)
[2019-02-03] MEDS ORDERED: HYDROmorphone INJ 0.5 MG/0.5 ML SYR IV PRN (12:38)
[2019-02-03] MEDS ORDERED: NALOXONE HCL 0.4 MG/1 ML VIAL/CARP IV PRN (12:38)
[2019-02-03] MEDS: ACETAMINOPHEN 500 MG TAB PO SCH ×2 (14:22→21:33)
[2019-02-03] MEDS: CEFAZOLIN 1000MG 1,000 MG/7.5 ML SYR IV SCH (17:56)
[2019-02-03] MEDS: FERROUS GLUCONATE 324 MG TAB PO SCH (17:56)
[2019-02-03] MEDS ORDERED: NON-FORMULARY MEDICATION (Potassium 99 MG) PO SCH (21:00)
[2019-02-03] MEDS: SENNA 8.6 MG TAB PO SCH (21:33)
[2019-02-03] MEDS: MAGNESIUM OXIDE 400 MG TAB PO SCH (21:33)
[2019-02-03] MEDS: ASPIRIN 81 MG ECTAB PO SCH (21:33)
[2019-02-03] MEDS: DOCUSATE SODIUM 100 MG CAP PO SCH (21:33)
[2019-02-03] MEDS: CHOLECALCIFEROL 1,000 UNITS TAB PO SCH (21:33)
[2019-02-03] MEDS: CALCIUM CARBONATE 1250MG TAB PO SCH (21:33)
[2019-02-04] MEDS: CEFAZOLIN 1000MG 1,000 MG/7.5 ML SYR IV SCH (01:13)
[2019-02-04 05:40] LABS: Hematocrit (blood only) 34.7 % (37-47); Hemoglobin 11.7 g/dL (12.0-16.0); Mean Corpuscular Hemoglobin 30.6 pg (25-34); Mean Corpuscular Hgb Conc 33.7 g/dL (32-36); Mean Corpuscular Volume 90.8 fL (80-100); Mean Platelet Volume 10.2 fL (7.4-10.4); Platelet Count 178 K/uL (130-400); RDW Coefficient of Variation 12.7 % (11.5-14.5); RDW Standard Deviation 42.3 fL (36.4-46.3); Red Blood Count 3.82 M/uL (4.2-5.4); White Blood Count 13.14 K/uL (4.8-10.8)
[2019-02-04] MEDS: ACETAMINOPHEN 500 MG TAB PO SCH ×3 (06:08→21:33)
[2019-02-04] MEDS: LEVOTHYROXINE SODIUM 75 MCG TABLET PO SCH (06:08)
[2019-02-04 06:10] LABS: BUN Creatinine Ratio 30.9 (10-20); Calcium 8.6 mg/dl (8.5-10.1); Creatinine Clr Calc Pharmacy 36.8 ml/min; Est GFR (African American) 67.6; Est GFR (Non-African American) 58.3; Potassium 4.4 mmol/L (3.5-5.1)
--- NOTE | 2019-02-04 07:24 | Orthopedic Progress Note ---
Date of Service February 04, 2019 Assessment & Plan (1) Primary osteoarthritis of left knee: POD#1 Left TKA -AM labs-Hemoglobin 11.7 from 14.8 preop. Acute blood loss anemia likely due to surgical loss vs dilutional effect -PT/OT -Pain management -DVT prophylaxis-Asprin 81mg BID x 30 days -D/C planning-planning on [facility] on Thursday Subjective Patient is POD#1 Left TKA. Doing well this morning, pain controlled. No other complaints. Denies chest pain, sob, dizziness, n/vb/d. Review of Systems Review of Systems: All systems reviewed & are unremarkable except as noted in HPI & below Physical Exam Physical Exam: Left knee-Dressing is c/d/i, hemovac and yesi in place. Good dorsiflexion, toes mobile. No calf tendneress. Distally n/v status and sensation intact. Constitutional: well developed and well nourished; no acute distress Results & Data Vital Signs (Past 12 Hours) Vital Signs Temp Pulse Resp BP Pulse Ox 02/04/19 03:43 36.6 C 71 18 132/81 96 02/03/19 23:43 36.5 C 70 18 137/69 95 02/03/19 19:34 36.6 C 76 18 141/68 H 96 Laboratory Results Lab Results 01/10/19 01/10/19 01/10/19 Range/Units 11:43 11:43 11:43 WBC 5.03 (4.8-10.8) K/uL RBC 4.82 (4.2-5.4) M/uL Hgb 14.8 (12.0-16.0) g/dL Hct 44.7 (37-47) % MCV 92.7 (80-100) fL MCH 30.7 (25-34) pg MCHC 33.1 (32-36) g/dL RDW Std Deviation 43.1 (36.4-46.3) fL RDW Coeff of Michelet 12.8 (11.5-14.5) % Plt Count 209 (130-400) K/uL MPV 10.6 H (7.4-10.4) fL Immature Gran % (Auto) 0.6 % Neut % (Auto) 75.6 % Lymph % (Auto) 13.7 % [place] % (Auto) 9.3 % Eos % (Auto) 0.6 % Baso % (Auto) 0.2 % Immature Gran # (Auto) 0.03 H (0.00-0.02) K/uL Neut # (Auto) 3.80 (1.4-6.5) K/uL Lymph # (Auto) 0.69 L (1.2-3.4) K/uL [place]clennan # (Auto) 0.47 (0.11-0.59) K/uL Eos # (Auto) 0.03 (0-0.5) K/uL Baso # (Auto) 0.01 (0-0.2) K/uL PT 10.3 (9.0-12.0) Seconds INR 1.0 (0.9-1.1) APTT 30.9 (21.0-31.0) Seconds PTT Ratio 1.1 Sodium 138 (136-145) mmol/L Potassium 3.6 (3.5-5.1) mmol/L Chloride 102 (98-107) mmol/L Carbon Dioxide 27 (21-32) mmol/L Anion Gap 9.0 (3-11) BUN 16 (7-18) mg/dl Creatinine 0.76 (0.6-1.2) mg/dl Est Cr Clr Drug Dosing 44.6 ml/min Est GFR ( Amer) 84.1 Est GFR (Non-Af Amer) 72.5 BUN/Creatinine Ratio 20.8 H (10-20) Glucose 87 (70-99) mg/dl Estimat Average Glucose mg/dl Hemoglobin A1c (4.5-5.6) % Calcium 8.9 (8.5-10.1) mg/dl Albumin 4.0 (3.4-5.0) gm/dl Urine Color Urine Appearance (Clear) Urine pH (4.5-7.5) Ur Specific [place] (1.000-1.030) Urine Protein (Negative) Urine Glucose (UA) (Negative) Urine Ketones (Negative) Urine Blood (Negative) Urine Nitrite (Negative) Urine Bilirubin (Negative) Urine Urobilinogen (Negative) Ur Leukocyte Esterase (Negative) Urine WBC (Auto) (0-5) /hpf Urine RBC (Auto) (0-4) /hpf U Hyaline Cast (Auto) (0-5) /lpf U Epithel Cells (Auto) (0-5) /lpf Urine Bacteria (Auto) (Negative) Blood Type Antibody Screen 01/10/19 01/10/19 01/10/19 Range/Units 11:43 11:43 11:43 WBC (4.8-10.8) K/uL RBC (4.2-5.4) M/uL Hgb (12.0-16.0) g/dL Hct (37-47) % MCV (80-100) fL MCH (25-34) pg MCHC (32-36) g/dL RDW Std Deviation (36.4-46.3) fL RDW Coeff of Michelet (11.5-14.5) % Plt Count (130-400) K/uL MPV (7.4-10.4) fL Immature Gran % (Auto) % Neut % (Auto) % Lymph % (Auto) % [place] % (Auto) % Eos % (Auto) % Baso % (Auto) % Immature Gran # (Auto) (0.00-0.02) K/uL Neut # (Auto) (1.4-6.5) K/uL Lymph # (Auto) (1.2-3.4) K/uL [place]cl[place] # (Auto) (0.11-0.59) K/uL Eos # (Auto) (0-0.5) K/uL Baso # (Auto) (0-0.2) K/uL PT (9.0-12.0) Seconds INR (0.9-1.1) APTT (21.0-31.0) Seconds PTT Ratio Sodium (136-145) mmol/L Potassium (3.5-5.1) mmol/L Chloride (98-107) mmol/L Carbon Dioxide (21-32) mmol/L Anion Gap (3-11) BUN (7-18) mg/dl Creatinine (0.6-1.2) mg/dl Est Cr Clr Drug Dosing ml/min Est GFR ( Amer) Est GFR (Non-Af Amer) BUN/Creatinine Ratio (10-20) Glucose (70-99) mg/dl Estimat Average Glucose 126 mg/dl Hemoglobin A1c 6.0 H (4.5-5.6) % Calcium (8.5-10.1) mg/dl Albumin (3.4-5.0) gm/dl Urine Color Yellow Urine Appearance Cloudy A (Clear) Urine pH 7.5 (4.5-7.5) Ur Specific [place] 1.018 (1.000-1.030) Urine Protein Negative (Negative) Urine Glucose (UA) Negative (Negative) Urine Ketones Negative (Negative) Urine Blood Trace H (Negative) Urine Nitrite Negative (Negative) Urine Bilirubin Negative (Negative) Urine Urobilinogen Negative (Negative) Ur Leukocyte Esterase Negative (Negative) Urine WBC (Auto) 1-5 (0-5) /hpf Urine RBC (Auto) 5-10 H (0-4) /hpf U Hyaline Cast (Auto) 0 (0-5) /lpf U Epithel Cells (Auto) 10-20 H (0-5) /lpf Urine Bacteria (Auto) Negative (Negative) Blood Type O Positive Antibody Screen NEGATIVE 02/04/19 02/04/19 Range/Units 05:23 05:23 WBC 13.14 H (4.8-10.8) K/uL RBC 3.82 L (4.2-5.4) M/uL Hgb 11.7 L (12.0-16.0) g/dL Hct 34.7 L (37-47) % MCV 90.8 (80-100) fL MCH 30.6 (25-34) pg MCHC 33.7 (32-36) g/dL RDW Std Deviation 42.3 (36.4-46.3) fL RDW Coeff of Michelet 12.7 (11.5-14.5) % Plt Count 178 (130-400) K/uL MPV 10.2 (7.4-10.4) fL Immature Gran % (Auto) % Neut % (Auto) % Lymph % (Auto) % [place]cl[place] % (Auto) % Eos % (Auto) % Baso % (Auto) % Immature Gran # (Auto) (0.00-0.02) K/uL Neut # (Auto) (1.4-6.5) K/uL Lymph # (Auto) (1.2-3.4) K/uL [place] # (Auto) (0.11-0.59) K/uL Eos # (Auto) (0-0.5) K/uL Baso # (Auto) (0-0.2) K/uL PT (9.0-12.0) Seconds INR (0.9-1.1) APTT (21.0-31.0) Seconds PTT Ratio Sodium 137 (136-145) mmol/L Potassium 4.4 (3.5-5.1) mmol/L Chloride 107 (98-107) mmol/L Carbon Dioxide 24 (21-32) mmol/L Anion Gap 7.0 (3-11) BUN 28 H (7-18) mg/dl Creatinine 0.91 (0.6-1.2) mg/dl Est Cr Clr Drug Dosing 36.8 ml/min Est GFR ( Amer) 67.6 Est GFR (Non-Af Amer) 58.3 BUN/Creatinine Ratio 30.9 H (10-20) Glucose 126 H (70-99) mg/dl Estimat Average Glucose mg/dl Hemoglobin A1c (4.5-5.6) % Calcium 8.6 (8.5-10.1) mg/dl Albumin (3.4-5.0) gm/dl Urine Color Urine Appearance (Clear) Urine pH (4.5-7.5) Ur Specific [place] (1.000-1.030) Urine Protein (Negative) Urine Glucose (UA) (Negative) Urine Ketones (Negative) Urine Blood (Negative) Urine Nitrite (Negative) Urine Bilirubin (Negative) Urine Urobilinogen (Negative) Ur Leukocyte Esterase (Negative) Urine WBC (Auto) (0-5) /hpf Urine RBC (Auto) (0-4) /hpf U Hyaline Cast (Auto) (0-5) /lpf U Epithel Cells (Auto) (0-5) /lpf Urine Bacteria (Auto) (Negative) Blood Type Antibody Screen
--- NOTE | 2019-02-04 07:59 | Anesthesiology Progress Note ---
Date of Service February 04, 2019 Anesthesia Post Procedure Vital Signs Vital Signs: Temp Pulse Pulse Resp BP Pulse Ox 02/04/19 03:43 36.6 C 71 18 132/81 96 02/03/19 23:43 36.5 C 70 18 137/69 95 02/03/19 19:34 36.6 C 76 18 141/68 H 96 02/03/19 15:30 63 16 130/75 98 02/03/19 14:30 63 15 132/67 99 02/03/19 13:35 81 15 149/67 H 98 02/03/19 12:57 71 16 138/80 97 02/03/19 12:30 36.5 C 85 16 132/65 94 02/03/19 12:10 71 14 137/60 96 02/03/19 11:55 36.5 C 92 H 18 138/64 94 02/03/19 11:45 86 13 147/67 H 95 02/03/19 11:35 88 16 146/68 H 99 02/03/19 11:25 87 14 144/63 H 99 02/03/19 11:17 36.2 C L 99 H 13 148/62 H 98 Pain Intensity Left Knee: Pain Intensity: 0 Notes Mental Status: alert / awake / arousable and participated in evaluation Patient Amnestic to Procedure: Yes Nausea / Vomiting: adequately controlled Pain: adequately controlled Airway Patency, RR, SpO2: stable & adequate BP & HR: stable & adequate Hydration State: stable & adequate Anesthetic Complications: no major complications apparent and Pt Satisfied with anesthetic care
[2019-02-04] MEDS: DOCUSATE SODIUM 100 MG CAP PO SCH ×2 (08:22→21:31)
[2019-02-04] MEDS: FERROUS GLUCONATE 324 MG TAB PO SCH ×2 (08:22→17:55)
[2019-02-04] MEDS: LACTOBACILLUS ACIDOPHILUS (FLORANEX) TAB PO SCH (08:22)
[2019-02-04] MEDS: ASPIRIN 81 MG ECTAB PO SCH ×2 (08:22→21:31)
[2019-02-04] MEDS: MAGNESIUM OXIDE 400 MG TAB PO SCH ×2 (08:23→21:32)
[2019-02-04] MEDS: MULTIVITAMIN TAB PO SCH (08:23)
[2019-02-04] MEDS: CALCIUM CARBONATE 1250MG TAB PO SCH ×2 (08:23→21:32)
[2019-02-04] MEDS: OXYCODONE HCL IR 5 MG TAB (IMMEDIATE RELEASE) PO PRN ×3 (08:48→22:12)
[2019-02-04] MEDS: CALCIUM CARBONATE 500 MG CHEWABLE TAB PO PRN ×2 (10:38→14:31)
[2019-02-04] MEDS: CHOLECALCIFEROL 1,000 UNITS TAB PO SCH (21:32)
[2019-02-04] MEDS: SENNA 8.6 MG TAB PO SCH (21:32)
[2019-02-05] MEDS: LEVOTHYROXINE SODIUM 75 MCG TABLET PO SCH (05:52)
[2019-02-05] MEDS: ACETAMINOPHEN 500 MG TAB PO SCH ×3 (06:35→21:59)
[2019-02-05] MEDS: OXYCODONE HCL IR 5 MG TAB (IMMEDIATE RELEASE) PO PRN ×4 (06:45→21:54)
[2019-02-05] MEDS: FERROUS GLUCONATE 324 MG TAB PO SCH ×2 (07:48→17:55)
[2019-02-05] MEDS: LACTOBACILLUS ACIDOPHILUS (FLORANEX) TAB PO SCH (07:48)
[2019-02-05] MEDS: DOCUSATE SODIUM 100 MG CAP PO SCH ×2 (07:48→17:56)
[2019-02-05] MEDS: ASPIRIN 81 MG ECTAB PO SCH ×2 (07:48→21:58)
[2019-02-05] MEDS: MAGNESIUM OXIDE 400 MG TAB PO SCH ×2 (07:49→21:58)
[2019-02-05] MEDS: CALCIUM CARBONATE 1250MG TAB PO SCH ×2 (07:49→21:58)
[2019-02-05] MEDS: MULTIVITAMIN TAB PO SCH (07:49)
--- NOTE | 2019-02-05 08:36 | Orthopedic Progress Note ---
Date of Service February 05, 2019 Assessment & Plan (1) Status post left knee replacement: 83 yo female stable POD #2 s/p left TKA 1. Med management 2. DVT prophylaxis- ASA, SCDs 3. PT/OT 4. D/C planning- to [facility] 02/06 Subjective Pt resting in bed, pain controlled, states BP was elevated this AM, improved now with pain meds Physical Exam Physical Exam: JOSE dressing in place, toes mobile NVI, calf soft, NT Results & Data Vital Signs (Past 12 Hours) Vital Signs Temp Pulse Resp BP Pulse Ox 02/05/19 07:28 36.7 C 78 18 157/81 H 96 02/05/19 06:53 172/75 H 02/05/19 06:07 36.7 C 84 16 160/75 H 96 02/04/19 23:45 36.6 C 72 18 132/72 93
[2019-02-05] MEDS: CALCIUM CARBONATE 500 MG CHEWABLE TAB PO PRN ×2 (11:57→21:15)
[2019-02-05] MEDS: SENNA 8.6 MG TAB PO SCH (17:56)
[2019-02-05] MEDS: CHOLECALCIFEROL 1,000 UNITS TAB PO SCH (21:58)
[2019-02-05] MEDS ORDERED: ALUMINUM/MAGNESIUM SUSP 30 ML UDC PO PRN (22:11)
[2019-02-05] MEDS ORDERED: ONDANSETRON 4 MG OD TAB PO PRN (22:11)
[2019-02-06] MEDS: OXYCODONE HCL IR 5 MG TAB (IMMEDIATE RELEASE) PO PRN ×3 (01:06→12:30)
[2019-02-06] MEDS: LEVOTHYROXINE SODIUM 75 MCG TABLET PO SCH (05:49)
[2019-02-06] MEDS: ACETAMINOPHEN 500 MG TAB PO SCH (06:49)
[2019-02-06 07:59] VITALS: BP 139/77; PULSE 86; TEMP 98.8; O2SAT 97
--- NOTE | 2019-02-06 08:19 | Orthopedic Progress Note ---
Date of Service February 06, 2019 Assessment & Plan (1) Status post left knee replacement: 83 yo female stable POD #3 s/p left TKA 1. Med management 2. DVT prophylaxis- ASA, SCDs 3. PT/OT 4. D/C planning- d/c to [facility] today Subjective Pt resting in bed, pain controlled, denies complaints Physical Exam Physical Exam: JOSE dressing in place, toes mobile, NVI Results & Data Vital Signs (Past 12 Hours) Vital Signs Temp Pulse Pulse Resp BP Pulse Ox 02/06/19 07:58 37.1 C 86 20 139/77 97 02/05/19 23:05 36.9 C 73 16 143/78 H 96
[2019-02-06] MEDS: CALCIUM CARBONATE 1250MG TAB PO SCH (08:20)
[2019-02-06] MEDS: MAGNESIUM OXIDE 400 MG TAB PO SCH (08:21)
[2019-02-06] MEDS: DOCUSATE SODIUM 100 MG CAP PO SCH (08:21)
[2019-02-06] MEDS: MULTIVITAMIN TAB PO SCH (08:21)
[2019-02-06] MEDS: LACTOBACILLUS ACIDOPHILUS (FLORANEX) TAB PO SCH (08:21)
[2019-02-06] MEDS: ASPIRIN 81 MG ECTAB PO SCH (08:21)
[2019-02-06] MEDS: FERROUS GLUCONATE 324 MG TAB PO SCH (08:21)
--- NOTE | 2019-02-14 17:06 | Discharge Summary ---
DISCHARGE DIAGNOSIS: Degenerative joint disease, left knee. SECONDARY DIAGNOSES: History of gastroesophageal reflux disease, hearing deficit, skin carcinoma, thyroid carcinoma, hyperlipidemia, hypothyroidism, renal calculi, osteoarthritis. CONSULTS: None. COMPLICATIONS: None. PROCEDURES: Left total knee arthroplasty performed by Dr. Strickland on 02/03/2019. BRIEF HISTORY: As dictated in the history and physical. HOSPITAL SUMMARY: The patient was admitted on the above-noted date and had the above-noted surgery performed, which she tolerated well. On the first postoperative day, she was doing well that morning. Pain was controlled. She had no complaints. Denied chest pain, shortness of breath or dizziness. Dressings were clean, dry and intact. Hemovac was functioning. She had good dorsiflexion and toes were mobile. Calves were soft, nontender, neurovascularly intact. Vital signs were stable. She was afebrile. Hemoglobin was 11.7. She was started on physical therapy protocol and continued on DVT prophylaxis and pain management. She was planning on going to a skilled facility in several days. By her second postoperative day, she continued to remain stable. She was resting in bed. Pain was controlled. Blood pressure was mildly elevated but improved with pain meds and was likely pain related. JOSE dressing was in place. Toes were mobile. She was neurovascularly intact. Calves were soft, nontender. She was continued on her protocol and by 02/06/2019 blood pressures were much better at 139/77. Pain was controlled. She had no complaints. She was progressing with her physical therapy. Vital signs were stable and it was felt she could be transferred to [facility] for further physical therapy and care on 02/06/2019. For further review, please see chart. LABORATORY AND X-RAY DATA: As per chart. DISCHARGE INSTRUCTIONS: The patient was discharged to [facility] nursing [facility] on 02/06/2019. DIET: Regular. ACTIVITY: Weightbearing as tolerated on the affected extremity. Follow TK instruction sheets and special care instructions as noted. Follow up with Dr. Strickland in 2 weeks. The patient to call for appointment if one has not been made for you. DISCHARGE MEDICATIONS: Acetaminophen 1000 mg p.o. q. 8 hours, aspirin 81 mg p.o. b.i.d., oxycodone 5 mg p.o. q. 4 hours p.r.n. Resume home meds as listed.
== END 2019-02-06 13:03 | DRG 470 ==
LOC: ASU 06:32 → 3E 11:28

== ENCOUNTER 2019-10-06 10:11 | Inpatient (IN) ==
--- NOTE | 2019-09-16 14:57 | PAT Medication Instructions ---
Medication Instructions Date of Service September 16, 2019 Home Medications Medication Instructions Recorded levothyroxine 75 mcg tablet 75 mcg PO QAM #90 tab 04/13/19 thyroid (pork) 30 mg tablet 30 mg PO DAILY #90 tab 06/16/19 Cardio Cover 1 tab PO QPM Joint Health 1 tab PO BID Probiotic 3,000 mmu cells PO QAM calcium carbonate [Calcium 500] 1,000 mg PO BID cholecalciferol (vitamin D3) [Vitamin D3] 5,000 unit PO QPM cod liver oil 1 cap PO BID garlic 500 mg PO BID magnesium oxide 400 mg PO BID potassium 99 mg PO QAM levothyroxine 75 mcg tablet 75 mcg PO QAM Lung Support 1 tab PO QAM acetaminophen 500 mg tablet 500 mg PO Q8 PRN milk aihqhrm-FSF-numtfy-turmer 250 mg-250 mg tablet 1 mg PO HS thyroid (pork) 30 mg tablet 30 mg PO DAILY STOP taking 2 weeks before surgery If surgery is within 2 weeks, stop taking as soon as possible. Cardio Cover 1 tab PO QPM Joint Health 1 tab PO BID cod liver oil 1 cap PO BID garlic 500 mg PO BID Lung Support 1 tab PO QAM milk bdleaay-UVG-cjnlfw-turmer 250 mg-250 mg tablet 1 mg PO HS thyroid (pork) 30 mg tablet 30 mg PO DAILY DO NOT take the morning of surgery Probiotic 3,000 mmu cells PO QAM calcium carbonate [Calcium 500] 1,000 mg PO BID magnesium oxide 400 mg PO BID potassium 99 mg PO QAM Take morning of surgery With a small sip of water, OTHERWISE NOTHING TO EAT OR DRINK AFTER MIDNIGHT: levothyroxine 75 mcg tablet 75 mcg PO QAM acetaminophen 500 mg tablet 500 mg PO Q8 PRN (if needed) Take evening before surgery calcium carbonate [Calcium 500] 1,000 mg PO BID cholecalciferol (vitamin D3) [Vitamin D3] 5,000 unit PO QPM magnesium oxide 400 mg PO BID acetaminophen 500 mg tablet 500 mg PO Q8 PRN (if needed) Other Notes If you have any questions please call us at [phone] or [phone] or [phone] or [phone]
--- NOTE | 2019-09-19 14:19 | Anesthesiology Consultation ---
Date of Service September 19, 2019 Assessment & Plan (1) Encounter for pre-operative examination: COVID Status: As of 09/15 nurse assessment, patient denies travel to endemic area, or symptoms of COVID19. She does live independently in a cottage at [facility], where one employee did test POSITIVE for COVID19. Preoperative COVID19 testing to be completed prior to surgery. Chart Review Chart Review: Acceptable Risk for Surgery (pending surgeon ordered PCP clearance) and Patient seen in Pre Admission Testing Teaching & Discussion Instructed NPO after midnight before surgery, except medications with 15 cc of water. Medication instructions provided according to the PAT guidelines. History Surgery Operation Date: 10/06/19 11:15 Proposed Procedures p Right Total Knee Arthroplasty - Nash Strickland MD Height/Weight Height: 5 ft Weight: 55.6 kg Allergies Allergy/AdvReac Type Severity Reaction Status Date / Time No Known Allergies Allergy Verified 09/16/19 10:22 Medications Home Medications Medication Instructions Recorded Confirmed Last Taken Cardio Cover 1 tab PO QPM 01/10/19 09/16/19 01/20/19 Joint Health 1 tab PO BID 01/10/19 09/16/19 01/20/19 Probiotic 3,000 mmu cells PO QAM 01/10/19 09/16/19 01/30/19 calcium carbonate [Calcium 500] 1,000 mg PO BID 01/10/19 09/16/19 01/31/19 cholecalciferol (vitamin D3) 5,000 unit PO QPM 01/10/19 09/16/19 Unknown [Vitamin D3] cod liver oil 1 cap PO BID 01/10/19 09/16/19 01/20/19 garlic 500 mg PO BID 01/10/19 09/16/19 01/20/19 magnesium oxide 400 mg PO BID 01/10/19 09/16/19 01/31/19 potassium 99 mg PO QAM 01/10/19 09/16/19 01/31/19 levothyroxine 75 mcg tablet 75 mcg PO QAM #90 tab 04/13/19 09/16/19 Unknown Lung Support 1 tab PO QAM 06/16/19 09/16/19 Unknown acetaminophen 500 mg tablet 500 mg PO Q8 PRN tab 06/16/19 09/16/19 Unknown milk tpxymzu-NOT-hvayzj-turmer 250 1 mg PO HS tab 06/16/19 09/16/19 Unknown mg-250 mg tablet thyroid (pork) 30 mg tablet 30 mg PO DAILY #90 tab 06/16/19 09/16/19 Unknown Past Medical History Medical History GERD (gastroesophageal reflux disease) rare Hearing deficit B/L KNAPP History of skin cancer History of thyroid cancer s/p surgery, radioactive iodine treatment Hyperlipidemia Hypothyroidism s/p surgery, radioactive iodine treatment Kidney stone Osteoarthritis Past Family History Family History Sister Family history of diabetes mellitus Past Surgical History Surgical History History of arthroplasty of right knee LEFT History of bladder repair surgery History of cardiac cath 10+ years ago= no stents History of cataract surgery R/L History of colonoscopy History of D&C History of lumpectomy of left breast "BENIGN" History of repair of rectocele History of thyroidectomy partial- subsequently removed remaining portion-CANCER Status post surgical removal of malignant neoplasm of skin Status post IGGY-BSO Past Anesthesia History No Hx of Anesthesia Complications and No Family Hx of Anesthesia Complications History of PONV No Hx of PONV and No Hx of Motion Sickness Social History Smoking Status: Never smoker Do You Dip or Chew Tobacco: No Hx Alcohol Use: No Hx Substance Use: No substance use type: does not use Review of Systems Pt denies any recent chest pain, shortness of breath, palpitations, cough, fever or URI. Physical Exam Vital Signs BP: 158/71 (pt is very nervous today) P: 69bpm SPO2: 95% RA T: 98.6 F R: 16 ENMT Mouth: + dentures (upper and lower partials); no chipped teeth and no loose teeth Thyromental Distance: > or= 3.5 Finger Breadths (4) Mallampati Class: I Neck normal visual inspection and + limited neck extension (moderately) Respiratory normal respiratory effort Auscultation: lungs clear to auscultation bilaterally Cardiovascular Rate/Rhythm: regular rate and regular rhythm Heart Sounds: no murmur Extremities: no edema Testing Laboratory Results 09/19/19 14:40 09/19/19 14:40 PT 10.7 Seconds (9.0-12.0) 09/19/19 14:40 INR 1.0 (0.9-1.1) 09/19/19 14:40 APTT 32.0 Seconds (21.0-31.0) H 09/19/19 14:40 Hemoglobin A1c 5.8 % (4.5-5.6) H 09/19/19 14:40 Urine Color Yellow 09/19/19 14:40 Urine Appearance Cloudy (Clear) A 09/19/19 14:40 Urine pH 7.0 (4.5-7.5) 09/19/19 14:40 Ur Specific [place] 1.020 (1.000-1.030) 09/19/19 14:40 Urine Protein Negative (Negative) 09/19/19 14:40 Urine Glucose (UA) Negative (Negative) 09/19/19 14:40 Urine Ketones Negative (Negative) 09/19/19 14:40 Urine Nitrite Negative (Negative) 09/19/19 14:40 Ur Leukocyte Esterase Negative (Negative) 09/19/19 14:40 Urine WBC (Auto) 1-5 /hpf (0-5) 09/19/19 14:40 Urine RBC (Auto) 5-10 /hpf (0-4) H 09/19/19 14:40 U Hyaline Cast (Auto) 0 /lpf (0-5) 09/19/19 14:40 U Epithel Cells (Auto) 20-30 /lpf (0-5) H 09/19/19 14:40 Urine Bacteria (Auto) Negative (Negative) 09/19/19 14:40 Blood Type O Positive 09/19/19 14:40 Antibody Screen NEGATIVE 09/19/19 14:40 Electrocardiogram Date: 01/20/19 Findings: + NSR @ (72bpm) Chest X-Ray Date: 01/10/19 Findings: + NAD
[2019-09-19 15:41] LABS: Hematocrit (blood only) 47.8 % (37-47); Hemoglobin 15.7 g/dL (12.0-16.0); Mean Corpuscular Hemoglobin 30.8 pg (25-34); Mean Corpuscular Hgb Conc 32.8 g/dL (32-36); Mean Corpuscular Volume 93.9 fL (80-100); RDW Coefficient of Variation 12.9 % (11.5-14.5); RDW Standard Deviation 44.5 fL (36.4-46.3); Red Blood Count 5.09 M/uL (4.2-5.4)
[2019-09-19 15:42] LABS: Basophils # (auto) 0.01 K/uL (0-0.2); Basophils % (auto) 0.2 %; Eosinophils # (auto) 0.04 K/uL (0-0.5); Eosinophils % (auto) 0.7 %; Immature Granulocytes # (auto) 0.01 K/uL (0.00-0.02); Immature Granulocytes % (auto) 0.2 %; Lymphocytes # (auto) 0.55 K/uL (1.2-3.4); Lymphocytes % (auto) 9.8 %; Mean Platelet Volume 10.5 fL (7.4-10.4); Monocytes # (auto) 0.58 K/uL (0.11-0.59); Monocytes % (auto) 10.4 %; Neutrophils # (auto) 4.41 K/uL (1.4-6.5); Neutrophils % (auto) 78.7 %; Platelet Count 222 K/uL (130-400)
[2019-09-19 15:45] LABS: Appearance Urine Cloudy (Clear); Bacteria Urine Automated Negative (Negative); Bilirubin Urine Negative (Negative); Blood Urine Trace (Negative); Cast Urine Automated 0 /lpf (0-5); Color Urine Yellow; Epithelial Cell Urine Auto 20-30 /lpf (0-5); Glucose Urine UA Negative (Negative); Ketones Urine Negative (Negative); Leukocyte Esterase Urine Negative (Negative); Nitrite Urine Negative (Negative); Protein Urine Negative (Negative); Urobilinogen Urine Negative (Negative)
[2019-09-19 15:50] LABS: BUN Creatinine Ratio 17.6 (10-20); Calcium 9.5 mg/dl (8.5-10.1); Creatinine Clr Calc Pharmacy 43.1 ml/min; Est GFR (African American) 83.5; Potassium 4.2 mmol/L (3.5-5.1)
[2019-09-19 15:54] LABS: Partial Thromboplastin Ratio 1.1; Prothrombin Time 10.7 Seconds (9.0-12.0)
[2019-09-20 06:06] LABS: Estimated Average Glucose 120 mg/dl; Hemoglobin A1C 5.8 % (4.5-5.6)
--- NOTE | 2019-10-03 15:54 | History & Physical Report ---
Date of Service October 03, 2019 Assessment & Plan (1) Primary osteoarthritis of right knee: Treatment options discussed. She has failed conservative measures as above. Risks, benefits and alternatives to surgery including but not limited to infection, DVT, pain, stiffness, need for revision surgery, damage to blood vessels, damage to nerves, PE, , were discussed with the patient and they wish to proceed. Plan will be for right total knee arthroplasty at [facility] on 10/06/19. Will plan on ASA 81mg BID x 1 mo post operatively. Patient resides at [facility] in independent living. She may be going to inpatient rehab at [facility] vs [facility] depending on if her nephew is able to come stay with her. COVID testing completed preoperatively. All questions answered. She will follow up post operatively. History of Present Illness Chief Complaint: Right knee pain Primary Care Provider: Peter Berrios DO Patient is 83 year old female with PMHx significant for high cholesterol, GERD, kidney stones, thyroid Ca, hypothyroidism with complaints of right knee pain. Previously has had cortisone injections without any relief. Her pain interferes with her activities of daily living. She would like to proceed with knee replacement. She has done well with left knee replacement last year. Patient denies headaches, sweats, fevers, chills, double vision, blurred vision, cough, sore throat, dysphagia, chest pain, sob, wheezing, n/v/d/c, numbness, tingling, fatigue, urinary symptoms, mood disorders. ROS positive for right knee pain and stiffness. Allergies Allergy/AdvReac Type Severity Reaction Status Date / Time No Known Allergies Allergy Verified 09/16/19 10:22 Home Medications Home Medications Medication Instructions Recorded Confirmed Type Cardio Cover 1 tab PO QPM 01/10/19 09/16/19 History Joint Health 1 tab PO BID 01/10/19 09/16/19 History Probiotic 3,000 mmu cells PO QAM 01/10/19 09/16/19 History calcium carbonate [Calcium 500] 1,000 mg PO BID 01/10/19 09/16/19 History cholecalciferol (vitamin D3) 5,000 unit PO QPM 01/10/19 09/16/19 History [Vitamin D3] cod liver oil 1 cap PO BID 01/10/19 09/16/19 History garlic 500 mg PO BID 01/10/19 09/16/19 History magnesium oxide 400 mg PO BID 01/10/19 09/16/19 History potassium 99 mg PO QAM 01/10/19 09/16/19 History levothyroxine 75 mcg tablet 75 mcg PO QAM #90 tab 04/13/19 09/16/19 Rx Lung Support 1 tab PO QAM 06/16/19 09/16/19 History acetaminophen 500 mg tablet 500 mg PO Q8 PRN tab 06/16/19 09/16/19 History milk ifviqmr-YVN-mdqwwb-turmer 250 1 mg PO HS tab 06/16/19 09/16/19 History mg-250 mg tablet thyroid (pork) 30 mg tablet 30 mg PO DAILY #90 tab 06/16/19 09/16/19 Rx Past Med/Surg History Medical History GERD (gastroesophageal reflux disease) rare Hearing deficit B/L KNAPP History of skin cancer History of thyroid cancer s/p surgery, radioactive iodine treatment Hyperlipidemia Hypothyroidism s/p surgery, radioactive iodine treatment Kidney stone Osteoarthritis Surgical History History of arthroplasty of right knee LEFT History of bladder repair surgery History of cardiac cath 10+ years ago= no stents History of cataract surgery R/L History of colonoscopy History of D&C History of lumpectomy of left breast "BENIGN" History of repair of rectocele History of thyroidectomy partial- subsequently removed remaining portion-CANCER Status post surgical removal of malignant neoplasm of skin Status post IGGY-BSO Family History Sister Family history of diabetes mellitus Social History Preferred Language: Turkmen Communication Ability: Effective Minister Assistant Required: No Beliefs That Will Affect Care: None Current Living Situation: Personal Care Facility Other Information That Helps Us Care for You: No Feels Safe at Home: Yes Safety Concerns: Feels Safe At This Time Smoking Status: Never smoker Do You Dip or Chew Tobacco: No ; Second Hand Exposure: Yes (AT WORK ON [employer]) ; Hx Alcohol Use: No Hx Substance Use: No Review of Systems All systems reviewed & are unremarkable except as noted in HPI & below Physical Exam Constitutional: well developed and well nourished; no acute distress Eyes: PERRL, conjunctivae normal, anicteric sclerae ENMT: external ear and nose normal, oropharynx normal Neck: trachea midline, no thyromegaly Respiratory: normal respiratory effort, lungs clear to auscultation Cardiovascular: RRR, no murmur, no edema Musculoskeletal: Right knee: Tenderness medial joint line, ROM 0-120. Negative effusion. Stable to valgus and varus stress tests. Positive Yaritza's Skin: no rashes, warm and dry Neurologic: patellar DTR's 2+ bilat, sensation intact Psychiatric: A+Ox3, euthymic affect Results & Data Laboratory Results Lab Results 09/19/19 09/19/19 09/19/19 Range/Units 14:40 14:40 14:40 WBC 5.60 (4.8-10.8) K/uL RBC 5.09 (4.2-5.4) M/uL Hgb 15.7 (12.0-16.0) g/dL Hct 47.8 H (37-47) % MCV 93.9 (80-100) fL MCH 30.8 (25-34) pg MCHC 32.8 (32-36) g/dL RDW Std Deviation 44.5 (36.4-46.3) fL RDW Coeff of Michelet 12.9 (11.5-14.5) % Plt Count 222 (130-400) K/uL MPV 10.5 H (7.4-10.4) fL Immature Gran % (Auto) 0.2 % Neut % (Auto) 78.7 % Lymph % (Auto) 9.8 % [place] % (Auto) 10.4 % Eos % (Auto) 0.7 % Baso % (Auto) 0.2 % Immature Gran # (Auto) 0.01 (0.00-0.02) K/uL Neut # (Auto) 4.41 (1.4-6.5) K/uL Lymph # (Auto) 0.55 L (1.2-3.4) K/uL [place] # (Auto) 0.58 (0.11-0.59) K/uL Eos # (Auto) 0.04 (0-0.5) K/uL Baso # (Auto) 0.01 (0-0.2) K/uL PT 10.7 (9.0-12.0) Seconds INR 1.0 (0.9-1.1) APTT 32.0 H (21.0-31.0) Seconds PTT Ratio 1.1 Sodium (136-145) mmol/L Potassium (3.5-5.1) mmol/L Chloride (98-107) mmol/L Carbon Dioxide (21-32) mmol/L Anion Gap (3-11) BUN (7-18) mg/dl Creatinine (0.6-1.2) mg/dl Est Cr Clr Drug Dosing ml/min Est GFR ( Amer) Est GFR (Non-Af Amer) BUN/Creatinine Ratio (10-20) Glucose (70-99) mg/dl Estimat Average Glucose mg/dl Hemoglobin A1c (4.5-5.6) % Calcium (8.5-10.1) mg/dl Albumin (3.4-5.0) gm/dl Urine Color Urine Appearance (Clear) Urine pH (4.5-7.5) Ur Specific [place] (1.000-1.030) Urine Protein (Negative) Urine Glucose (UA) (Negative) Urine Ketones (Negative) Urine Blood (Negative) Urine Nitrite (Negative) Urine Bilirubin (Negative) Urine Urobilinogen (Negative) Ur Leukocyte Esterase (Negative) Urine WBC (Auto) (0-5) /hpf Urine RBC (Auto) (0-4) /hpf U Hyaline Cast (Auto) (0-5) /lpf U Epithel Cells (Auto) (0-5) /lpf Urine Bacteria (Auto) (Negative) Blood Type O Positive Antibody Screen NEGATIVE 09/19/19 09/19/19 09/19/19 Range/Units 14:40 14:40 14:40 WBC (4.8-10.8) K/uL RBC (4.2-5.4) M/uL Hgb (12.0-16.0) g/dL Hct (37-47) % MCV (80-100) fL MCH (25-34) pg MCHC (32-36) g/dL RDW Std Deviation (36.4-46.3) fL RDW Coeff of Michelet (11.5-14.5) % Plt Count (130-400) K/uL MPV (7.4-10.4) fL Immature Gran % (Auto) % Neut % (Auto) % Lymph % (Auto) % [place] % (Auto) % Eos % (Auto) % Baso % (Auto) % Immature Gran # (Auto) (0.00-0.02) K/uL Neut # (Auto) (1.4-6.5) K/uL Lymph # (Auto) (1.2-3.4) K/uL [place] # (Auto) (0.11-0.59) K/uL Eos # (Auto) (0-0.5) K/uL Baso # (Auto) (0-0.2) K/uL PT (9.0-12.0) Seconds INR (0.9-1.1) APTT (21.0-31.0) Seconds PTT Ratio Sodium 140 (136-145) mmol/L Potassium 4.2 (3.5-5.1) mmol/L Chloride 104 (98-107) mmol/L Carbon Dioxide 30 (21-32) mmol/L Anion Gap 6.0 (3-11) BUN 13 (7-18) mg/dl Creatinine 0.76 (0.6-1.2) mg/dl Est Cr Clr Drug Dosing 43.1 ml/min Est GFR ( Amer) 83.5 Est GFR (Non-Af Amer) 72.0 BUN/Creatinine Ratio 17.6 (10-20) Glucose 88 (70-99) mg/dl Estimat Average Glucose 120 mg/dl Hemoglobin A1c 5.8 H (4.5-5.6) % Calcium 9.5 (8.5-10.1) mg/dl Albumin 4.0 (3.4-5.0) gm/dl Urine Color Yellow Urine Appearance Cloudy A (Clear) Urine pH 7.0 (4.5-7.5) Ur Specific [place] 1.020 (1.000-1.030) Urine Protein Negative (Negative) Urine Glucose (UA) Negative (Negative) Urine Ketones Negative (Negative) Urine Blood Trace H (Negative) Urine Nitrite Negative (Negative) Urine Bilirubin Negative (Negative) Urine Urobilinogen Negative (Negative) Ur Leukocyte Esterase Negative (Negative) Urine WBC (Auto) 1-5 (0-5) /hpf Urine RBC (Auto) 5-10 H (0-4) /hpf U Hyaline Cast (Auto) 0 (0-5) /lpf U Epithel Cells (Auto) 20-30 H (0-5) /lpf Urine Bacteria (Auto) Negative (Negative) Blood Type Antibody Screen Diagnostic Findings Right knee: [id number] lateral compartment osteophyte formation of the letter from condyle lateral tibial plateau. Arthritic change in the medial as well as patellofemoral compartments
[~2019-10-06 10:11] MED LIST changes: +BUPIVACAINE 0.5 % 5 MG/1 ML PF 10ML VIAL ONE; +EPINEPHrine INJ 1 MG/ML AMP ONE; +GABAPENTIN 300 MG CAP PO SCH; -GABAPENTIN 900 MG DOSE PO SCH; -OXYCODONE HCL 10 MG TABCR (OXYCONTIN) PO SCH; +ROPIVACAINE 0.5% 5 MG/ML 30 ML VIAL ONE; -TRANEXAMIC ACID 1,000 MG **IV Intra-op IV SCH; -TRANEXAMIC ACID 1,000 MG **IV Pre-op IV SCH; +dexAMETHasone 4 MG TAB PO SCH
[2019-10-06] MEDS ORDERED: MIDAZOLAM HCL 1 MG/ML 2ML VIAL ONE (12:12)
--- NOTE | 2019-10-06 12:12 | History & Physical Bridge Note ---
Date of Service October 06, 2019 History & Physical Bridge Note I have examined the patient, reviewed the History & Physical and in the interval since the performance of the History & Physical I have noted the following changes of clinical significance: no changes noted
[2019-10-06] MEDS ORDERED: TRANEXAMIC ACID / 0.7% NACL 1,000 MG/100 ML BAG IV STA ×2 (12:13→12:14)
[2019-10-06] MEDS ORDERED: fentaNYL citrate 100 MCG/2 ML VIAL ONE (12:13)
[2019-10-06] MEDS ORDERED: ePHEDrine sulfate 50 MG/ML AMP IV PRN (12:34)
[2019-10-06] MEDS ORDERED: fentaNYL citrate 100 MCG/2 ML VIAL IV PRN (12:34)
[2019-10-06] MEDS ORDERED: ATROPINE SULFATE 0.1 MG/ML 10ML SYR IV PRN (12:34)
[2019-10-06] MEDS ORDERED: ONDANSETRON INJ 2 MG/ML 2 ML VIAL IV PRN ×2 (12:34→16:23)
[2019-10-06] MEDS ORDERED: HYDROmorphone INJ 1 MG/ML SYRINGE IV PRN (12:34)
[2019-10-06] MEDS ORDERED: ORTHO JOINT ANESTHETIC ONE (13:04)
[2019-10-06] MEDS ORDERED: BACITRACIN INJ 50,000 UNIT VIAL ONE (13:05)
[2019-10-06] MEDS ORDERED: PROPOFOL IV EMULSION 10 MG/ML 20 ML VIAL IV ONE (14:04)
--- NOTE | 2019-10-06 14:37 | Anesthesiology Progress Note ---
Date of Service October 06, 2019 Anesthesia Post Procedure Vital Signs Vital Signs: Temp Pulse Resp BP Pulse Ox 10/06/19 11:12 37.1 C 77 18 176/78 H 98 10/06/19 10:40 37.1 C 90 16 184/75 H 96 Transfer of Care Handoff Completed per policy Notes Mental Status: alert / awake / arousable and participated in evaluation Patient Amnestic to Procedure: Yes Nausea / Vomiting: adequately controlled Pain: adequately controlled Airway Patency, RR, SpO2: stable & adequate BP & HR: stable & adequate Hydration State: stable & adequate Neuraxial Anesthesia: was administered and sensory block is resolving Anesthetic Complications: no major complications apparent and Pt Satisfied with anesthetic care
--- NOTE | 2019-10-06 15:12 | Operative Report ---
Post Operative Report Pre & Post Diagnosis Operation Date: 10/06/19 12:15 Pre-Op Diagnosis: RIGHT KNEE OSTEOARTHRITIS Post-Op Diagnosis: RIGHT KNEE OSTEOARTHRITIS I identified the patient and participated in the time-out.: Yes Procedure Operation Date: 10/06/19 12:15 Actual Procedures p Right Total Knee Arthroplasty(Right) - Nash Strickland MD Surgeon Nash Strickland MD Shuttle Operator Tr Douglass PA-C Estimated Blood Loss 20 Findings Consistent with Post-Op Diagnosis Specimens Bone and tissue Drains None Anesthesia Type MAC Spinal Regional Complications none Disposition Accompanied Patient To Recovery: No Disposition: Recovery Room Indications The patient is an 84-year-old female longstanding arthritic change the right knee. Is [id number] lateral compartment with arthritic change in all 3 compartments. She has failed conservative measures including injection, anti- inflammatories, rehab. She wishes to proceed with a right total knee arthropl asty. Description of Procedure Risks benefits and alternatives of surgery including but not limited to infection, DVT, pain, stiffness, need for surgery, damage to blood vessels, damage to nerves or risks of anesthesia were discussed with the patient and they wished to proceed. The patient was identified and the laterality was confirmed and marked. They received a preoperative antibiotic as well as a spinal anesthetic and an abductor canal block. A well-padded tourniquet was applied and then the limb was prepped and draped in standard manner with ChloraPrep. The limb was exsanguinated and the tourniquet was inflated. I made a standard anterior incision. I sharply incised the skin then utilized Bovie electrocautery to achieve hemostasis. I made a medial parapatellar arthrotomy and mobilized the patella laterally. I then excised the anterior horns of the medial and lateral meniscus as well as the infrapatellar fat pad. I elevated a portion of the MCL off of the tibia. I then pinned into place a patient-matched distal femoral cutting guide and made my distal femoral resection. I then pinned into place the 5 in 1 femoral cutting guide. I made my anterior, posterior and chamfer cuts. I then excised the cruciates and the remaining portions of the menisci. I then pinned into place a patient- matched tibial cutting guide and made my tibial resection. I then pinned into place the tibial plate a utilizing alignment bailee to confirm rotation. I then cut for the post. Utilizing a lamina sheet metal production worker and I then removed posterior osteophytes off the femur. I then placed a trial femur into position and cut for the trochlear component. I then sequentially trialed to size the polyethylene until there was good soft tissue balancing and range of motion. I then prepared the patella with a freehand cut utilizing sagittal saw. I sized and drilled for the patella. There was good tracking to the patella no lateral release was needed. All the trial components were removed. The deep tissues were anesthetized with an ortho mix solution. Then with Simplex HV with gentamicin cement, I cemented my definitive components. Definitive components, [facility] 2: Femur 3 Tibia 3 Poly 11 Patella 32 oval A betadine soak was performed. The arthrotomy was closed with interrupted #1 Vicryl suture subcutaneous tissue was closed with interrupted 2-0 Vicryl suture. The skin was closed with with edvin. An Acticoat and Mau dressing were placed. Sterile dressings were applied. All needle and sponge counts were correct at the end of the procedure patient was transferred to the PACU in stable condition without apparent complication. The PA-C was necessary for assistance with procedure for assistance in positioning, prepping, draping, retraction and closure. I attest to the content of the Intraoperative Record and any orders documented therein. Any exceptions are noted below.
--- NOTE | 2019-10-06 16:01 | Anesthesiology Progress Note ---
Date of Service October 06, 2019 Anesthesia Post Procedure Vital Signs Vital Signs: Temp Pulse Pulse Resp BP BP Pulse Ox 10/06/19 15:50 36.6 C 77 20 126/61 99 10/06/19 15:40 84 16 140/56 L 100 10/06/19 15:30 96 H 19 149/64 H 100 10/06/19 15:24 36.4 C L 91 H 19 155/67 H 99 10/06/19 11:12 37.1 C 77 18 176/78 H 98 10/06/19 10:40 37.1 C 90 16 184/75 H 96 Transfer of Care Handoff Completed per policy Notes Mental Status: alert / awake / arousable Patient Amnestic to Procedure: Yes Nausea / Vomiting: adequately controlled Pain: adequately controlled Airway Patency, RR, SpO2: stable & adequate BP & HR: stable & adequate Hydration State: stable & adequate Neuraxial Anesthesia: was administered and sensory block is resolving Anesthetic Complications: no major complications apparent and Pt Satisfied with anesthetic care Notes: The patient is awake and comfortable. Her vital signs are stable.
[2019-10-06] MEDS ORDERED: NALOXONE HCL 0.4 MG/1 ML VIAL/CARP IV PRN (16:23)
[2019-10-06] MEDS ORDERED: METOCLOPRAMIDE HCL INJ 5 MG/ML 2 ML VIAL IV PRN (16:23)
[2019-10-06] MEDS ORDERED: MAGNESIUM HYDROXIDE SUSP 30 ML UDC PO PRN (16:23)
[2019-10-06] MEDS ORDERED: HYDROmorphone INJ 0.5 MG/0.5 ML SYR IV PRN (16:23)
[2019-10-06] MEDS ORDERED: OXYCODONE HCL IR 5 MG TAB (IMMEDIATE RELEASE) PO PRN (16:23)
[2019-10-06] MEDS ORDERED: bisacodyL 10 MG SUPP PR PRN (16:23)
[2019-10-06] MEDS: SODIUM CHLORIDE 0.9% 1000ML 1,000 ML IV SCH (18:09)
--- NOTE | 2019-10-06 18:43 | XRay Report ---
XR knee RT 1 or 2V routine CLINICAL HISTORY: Postoperative evaluation. COMPARISON: None FINDINGS: Alignment of the total right knee arthroplasty is anatomic. There is no fracture or unexpe cted radiopaque foreign body. There are skin edvin. IMPRESSION: Expected findings following total right knee arthroplasty. ACT 112: Negative or not required by law. Electronically signed by: Flako Martinez M.D. 10/06/2019 6:42 PM
[2019-10-06] MEDS ORDERED: SENNA 8.6 MG TAB PO SCH (21:00)
[2019-10-06] MEDS ORDERED: CHOLECALCIFEROL 1,000 UNITS 25 MCG TAB PO SCH (21:00)
[2019-10-06] MEDS: CeleBREX 200 MG CAP PO SCH (21:08)
[2019-10-06] MEDS: CEFAZOLIN 1000MG 1,000 MG/7.5 ML SYR IV SCH (21:08)
[2019-10-06] MEDS: ACETAMINOPHEN 500 MG TAB PO SCH (21:08)
[2019-10-06] MEDS: ASPIRIN 81 MG ECTAB PO SCH (21:08)
[2019-10-06] MEDS: CALCIUM CARBONATE 1250MG TAB PO SCH (21:08)
[2019-10-06] MEDS: MAGNESIUM OXIDE 400 MG TAB PO SCH (21:09)
[2019-10-06] MEDS: DOCUSATE SODIUM 100 MG CAP PO SCH (21:09)
[2019-10-07] MEDS: SODIUM CHLORIDE 0.9% 1000ML 1,000 ML IV SCH (05:16)
[2019-10-07] MEDS: ACETAMINOPHEN 500 MG TAB PO SCH ×3 (05:56→13:22)
[2019-10-07] MEDS: CEFAZOLIN 1000MG 1,000 MG/7.5 ML SYR IV SCH (06:00)
[2019-10-07] MEDS ORDERED: LEVOTHYROXINE SODIUM 75 MCG TABLET PO SCH (06:30)
[2019-10-07 07:00] LABS: Hematocrit (blood only) 37.3 % (37-47); Hemoglobin 12.4 g/dL (12.0-16.0); Mean Corpuscular Hemoglobin 30.6 pg (25-34); Mean Corpuscular Hgb Conc 33.2 g/dL (32-36); Mean Corpuscular Volume 92.1 fL (80-100); Mean Platelet Volume 10.2 fL (7.4-10.4); Platelet Count 193 K/uL (130-400); RDW Coefficient of Variation 12.7 % (11.5-14.5); RDW Standard Deviation 42.8 fL (36.4-46.3); Red Blood Count 4.05 M/uL (4.2-5.4); White Blood Count 12.81 K/uL (4.8-10.8)
[2019-10-07 07:16] LABS: BUN Creatinine Ratio 25.5 (10-20); Calcium 8.5 mg/dl (8.5-10.1); Creatinine Clr Calc Pharmacy 44.2 ml/min; Est GFR (African American) 86.2; Est GFR (Non-African American) 74.4; Potassium 3.8 mmol/L (3.5-5.1)
[2019-10-07] MEDS: DOCUSATE SODIUM 100 MG CAP PO SCH (08:37)
[2019-10-07] MEDS: ASPIRIN 81 MG ECTAB PO SCH (08:37)
[2019-10-07] MEDS: MAGNESIUM OXIDE 400 MG TAB PO SCH (08:37)
[2019-10-07] MEDS: CeleBREX 200 MG CAP PO SCH (08:37)
[2019-10-07] MEDS: CALCIUM CARBONATE 1250MG TAB PO SCH (08:38)
[2019-10-07] MEDS ORDERED: NON-FORMULARY MEDICATION (Potassium 99 MG) PO SCH (09:00)
[2019-10-07] MEDS ORDERED: LACTOBACILLUS ACIDOPHILUS (FLORANEX) TAB PO SCH (09:00)
[2019-10-07] MEDS ORDERED: MULTIVITAMIN TAB PO SCH (09:00)
--- NOTE | 2019-10-07 10:59 | Orthopedic Progress Note ---
Date of Service October 07, 2019 Assessment & Plan (1) Primary osteoarthritis of right knee: Postop day 1 status post right total knee arthroplasty PT/OT protocols. Weightbearing as tolerated. Patient states that she is ambulated the hallways this morning with physical therapy. DVT prophylaxis with aspirin p.o. twice daily, Roland, GYALE guido. Continue current pain regimen. DC planning-patient resides at [facility]. She will be utilizing their PT team. Admission and Anticipated Discharge Date Admission Date: October 06, 2019 Subjective Postop day 1 Patient is sitting in her chair at the bedside. She is alert and oriented. No complaints today. Pain is controlled. Denies shortness of breath, chest pain, lightheadedness. Physical Exam Physical Exam: Dressings are clean, dry, and intact. Calves are soft and nontender. Neurovascular is intact. Toes are mobile. She has good dorsiflexion and plantarflexion of the foot. Results & Data ([facility]) Vital Signs (Past 12 Hours) Vital Signs Temp Pulse Resp BP Pulse Ox 10/07/19 07:47 36.6 C 79 18 137/62 95 10/07/19 03:11 36.8 C 75 18 150/69 H 95 10/06/19 23:00 36.4 C L 80 16 147/66 H 95 Laboratory Results Laboratory Results WBC 12.81 K/uL (4.8-10.8) H 10/07/19 06:34 RBC 4.05 M/uL (4.2-5.4) L 10/07/19 06:34 Hgb 12.4 g/dL (12.0-16.0) 10/07/19 06:34 Hct 37.3 % (37-47) 10/07/19 06:34 MCV 92.1 fL (80-100) 10/07/19 06:34 MCH 30.6 pg (25-34) 10/07/19 06:34 MCHC 33.2 g/dL (32-36) 10/07/19 06:34 RDW Std Deviation 42.8 fL (36.4-46.3) 10/07/19 06:34 RDW Coeff of Michelet 12.7 % (11.5-14.5) 10/07/19 06:34 Plt Count 193 K/uL (130-400) 10/07/19 06:34 MPV 10.2 fL (7.4-10.4) 10/07/19 06:34 Immature Gran % (Auto) 0.2 % 09/19/19 14:40 Neut % (Auto) 78.7 % 09/19/19 14:40 Lymph % (Auto) 9.8 % 09/19/19 14:40 [place] % (Auto) 10.4 % 09/19/19 14:40 Eos % (Auto) 0.7 % 09/19/19 14:40 Baso % (Auto) 0.2 % 09/19/19 14:40 Immature Gran # (Auto) 0.01 K/uL (0.00-0.02) 09/19/19 14:40 Neut # (Auto) 4.41 K/uL (1.4-6.5) 09/19/19 14:40 Lymph # (Auto) 0.55 K/uL (1.2-3.4) L 09/19/19 14:40 [place] # (Auto) 0.58 K/uL (0.11-0.59) 09/19/19 14:40 Eos # (Auto) 0.04 K/uL (0-0.5) 09/19/19 14:40 Baso # (Auto) 0.01 K/uL (0-0.2) 09/19/19 14:40 PT 10.7 Seconds (9.0-12.0) 09/19/19 14:40 INR 1.0 (0.9-1.1) 09/19/19 14:40 APTT 32.0 Seconds (21.0-31.0) H 09/19/19 14:40 PTT Ratio 1.1 09/19/19 14:40 Sodium 137 mmol/L (136-145) 10/07/19 06:34 Potassium 3.8 mmol/L (3.5-5.1) 10/07/19 06:34 Chloride 108 mmol/L (98-107) H 10/07/19 06:34 Carbon Dioxide 23 mmol/L (21-32) 10/07/19 06:34 Anion Gap 6.0 (3-11) 10/07/19 06:34 BUN 19 mg/dl (7-18) H 10/07/19 06:34 Creatinine 0.74 mg/dl (0.6-1.2) 10/07/19 06:34 Est Cr Clr Drug Dosing 44.2 ml/min 10/07/19 06:34 Est GFR ( Amer) 86.2 10/07/19 06:34 Est GFR (Non-Af Amer) 74.4 10/07/19 06:34 BUN/Creatinine Ratio 25.5 (10-20) H 10/07/19 06:34 Glucose 111 mg/dl (70-99) H 10/07/19 06:34 Estimat Average Glucose 120 mg/dl 09/19/19 14:40 Hemoglobin A1c 5.8 % (4.5-5.6) H 09/19/19 14:40 Calcium 8.5 mg/dl (8.5-10.1) 10/07/19 06:34 Albumin 4.0 gm/dl (3.4-5.0) 09/19/19 14:40 Urine Color Yellow 09/19/19 14:40 Urine Appearance Cloudy (Clear) A 09/19/19 14:40 Urine pH 7.0 (4.5-7.5) 09/19/19 14:40 Ur Specific [place] 1.020 (1.000-1.030) 09/19/19 14:40 Urine Protein Negative (Negative) 09/19/19 14:40 Urine Glucose (UA) Negative (Negative) 09/19/19 14:40 Urine Ketones Negative (Negative) 09/19/19 14:40 Urine Blood Trace (Negative) H 09/19/19 14:40 Urine Nitrite Negative (Negative) 09/19/19 14:40 Urine Bilirubin Negative (Negative) 09/19/19 14:40 Urine Urobilinogen Negative (Negative) 09/19/19 14:40 Ur Leukocyte Esterase Negative (Negative) 09/19/19 14:40 Urine WBC (Auto) 1-5 /hpf (0-5) 09/19/19 14:40 Urine RBC (Auto) 5-10 /hpf (0-4) H 09/19/19 14:40 U Hyaline Cast (Auto) 0 /lpf (0-5) 09/19/19 14:40 U Epithel Cells (Auto) 20-30 /lpf (0-5) H 09/19/19 14:40 Urine Bacteria (Auto) Negative (Negative) 09/19/19 14:40 Blood Type O Positive 09/19/19 14:40 Antibody Screen NEGATIVE 09/19/19 14:40
--- NOTE | 2019-10-09 14:19 | Discharge Summary ---
Date of Service October 09, 2019 Admission HPI Per Admitting Provider Patient is 83 year old female with PMHx significant for high cholesterol, GERD, kidney stones, thyroid Ca, hypothyroidism with complaints of right knee pain. Previously has had cortisone injections without any relief. Her pain interferes with her activities of daily living. She would like to proceed with knee replacement. She has done well with left knee replacement last year. Patient denies headaches, sweats, fevers, chills, double vision, blurred vision, cough, sore throat, dysphagia, chest pain, sob, wheezing, n/v/d/c, numbness, tingling, fatigue, urinary symptoms, mood disorders. ROS positive for right knee pain and stiffness. Admission Exam Per Admitting Provider Constitutional: well developed and well nourished; no acute distress Eyes: PERRL, conjunctivae normal, anicteric sclerae ENMT: external ear and nose normal, oropharynx normal Neck: trachea midline, no thyromegaly Respiratory: normal respiratory effort, lungs clear to auscultation Cardiovascular: RRR, no murmur, no edema Musculoskeletal: Right knee: Tenderness medial joint line, ROM 0-120. Negative effusion. Stable to valgus and varus stress tests. Positive Yaritza's Skin: no rashes, warm and dry Neurologic: patellar DTR's 2+ bilat, sensation intact Psychiatric: A+Ox3, euthymic affect Principal Diagnosis Right knee osteoarthritis Discharge Exam Constitutional well developed and well nourished; no acute distress Eyes PERRL, conjunctivae normal, anicteric sclerae ENMT external ear and nose normal, oropharynx normal Neck trachea midline, no thyromegaly Respiratory normal respiratory effort, lungs clear to auscultation Cardiovascular RRR, no murmur, no edema Skin no rashes, warm and dry Neurologic patellar DTR's 2+ bilat, sensation intact Psychiatric A+Ox3, euthymic affect Discharge Data Allergies Allergy/AdvReac Type Severity Reaction Status Date / Time No Known Allergies Allergy Verified 10/06/19 10:27 Consultations 10/06/19 16:23 Consult Case Management - Discharge Planning Routine Procedures Performed Operation Date: 10/06/19 12:15 Actual Procedures p Right Total Knee Arthroplasty(Right) - Nash Strickland MD Ordered Studies 10/06/19 05:00 US - OR guided needle placemen Routine 10/06/19 12:33 US - OR guided needle placemen Routine Hospital Course (1) Primary osteoarthritis of right knee: Patient presented for same day admission following right total knee arthroplasty on 10/06/19. She tolerated procedure well. The Patient had an uneventful hospital course. Post-operatively, her activity was progressed and well tolerated. They participated in PT with ambulation distance of 300 feet. ROM of operative knee reached 90 degrees. Labs remained stable- lowest hemoglobin recorded: 12.4. Pain controlled on oral medications. Please refer to daily progress notes and PT notes for complete details. After exam on 10/06/19, patient was felt to be stable for discharge home with home PT. Patient will f/u in the office in about 2 weeks for further evaluation including x-rays and incision check, sooner if having any issues or concerns. Lab Results 09/19/19 09/19/19 09/19/19 Range/Units 14:40 14:40 14:40 WBC 5.60 (4.8-10.8) K/uL RBC 5.09 (4.2-5.4) M/uL Hgb 15.7 (12.0-16.0) g/dL Hct 47.8 H (37-47) % MCV 93.9 (80-100) fL MCH 30.8 (25-34) pg MCHC 32.8 (32-36) g/dL RDW Std Deviation 44.5 (36.4-46.3) fL RDW Coeff of Michelet 12.9 (11.5-14.5) % Plt Count 222 (130-400) K/uL MPV 10.5 H (7.4-10.4) fL Immature Gran % (Auto) 0.2 % Neut % (Auto) 78.7 % Lymph % (Auto) 9.8 % Lane % (Auto) 10.4 % Eos % (Auto) 0.7 % Baso % (Auto) 0.2 % Immature Gran # (Auto) 0.01 (0.00-0.02) K/uL Neut # (Auto) 4.41 (1.4-6.5) K/uL Lymph # (Auto) 0.55 L (1.2-3.4) K/uL Lane # (Auto) 0.58 (0.11-0.59) K/uL Eos # (Auto) 0.04 (0-0.5) K/uL Baso # (Auto) 0.01 (0-0.2) K/uL PT 10.7 (9.0-12.0) Seconds INR 1.0 (0.9-1.1) APTT 32.0 H (21.0-31.0) Seconds PTT Ratio 1.1 Sodium (136-145) mmol/L Potassium (3.5-5.1) mmol/L Chloride (98-107) mmol/L Carbon Dioxide (21-32) mmol/L Anion Gap (3-11) BUN (7-18) mg/dl Creatinine (0.6-1.2) mg/dl Est Cr Clr Drug Dosing ml/min Est GFR ( Amer) Est GFR (Non-Af Amer) BUN/Creatinine Ratio (10-20) Glucose (70-99) mg/dl Estimat Average Glucose mg/dl Hemoglobin A1c (4.5-5.6) % Calcium (8.5-10.1) mg/dl Albumin (3.4-5.0) gm/dl Urine Color Urine Appearance (Clear) Urine pH (4.5-7.5) Ur Specific [place] (1.000-1.030) Urine Protein (Negative) Urine Glucose (UA) (Negative) Urine Ketones (Negative) Urine Blood (Negative) Urine Nitrite (Negative) Urine Bilirubin (Negative) Urine Urobilinogen (Negative) Ur Leukocyte Esterase (Negative) Urine WBC (Auto) (0-5) /hpf Urine RBC (Auto) (0-4) /hpf U Hyaline Cast (Auto) (0-5) /lpf U Epithel Cells (Auto) (0-5) /lpf Urine Bacteria (Auto) (Negative) Blood Type O Positive Antibody Screen NEGATIVE 09/19/19 09/19/19 09/19/19 Range/Units 14:40 14:40 14:40 WBC (4.8-10.8) K/uL RBC (4.2-5.4) M/uL Hgb (12.0-16.0) g/dL Hct (37-47) % MCV (80-100) fL MCH (25-34) pg MCHC (32-36) g/dL RDW Std Deviation (36.4-46.3) fL RDW Coeff of Michelet (11.5-14.5) % Plt Count (130-400) K/uL MPV (7.4-10.4) fL Immature Gran % (Auto) % Neut % (Auto) % Lymph % (Auto) % Lane % (Auto) % Eos % (Auto) % Baso % (Auto) % Immature Gran # (Auto) (0.00-0.02) K/uL Neut # (Auto) (1.4-6.5) K/uL Lymph # (Auto) (1.2-3.4) K/uL Lane # (Auto) (0.11-0.59) K/uL Eos # (Auto) (0-0.5) K/uL Baso # (Auto) (0-0.2) K/uL PT (9.0-12.0) Seconds INR (0.9-1.1) APTT (21.0-31.0) Seconds PTT Ratio Sodium 140 (136-145) mmol/L Potassium 4.2 (3.5-5.1) mmol/L Chloride 104 (98-107) mmol/L Carbon Dioxide 30 (21-32) mmol/L Anion Gap 6.0 (3-11) BUN 13 (7-18) mg/dl Creatinine 0.76 (0.6-1.2) mg/dl Est Cr Clr Drug Dosing 43.1 ml/min Est GFR ( Amer) 83.5 Est GFR (Non-Af Amer) 72.0 BUN/Creatinine Ratio 17.6 (10-20) Glucose 88 (70-99) mg/dl Estimat Average Glucose 120 mg/dl Hemoglobin A1c 5.8 H (4.5-5.6) % Calcium 9.5 (8.5-10.1) mg/dl Albumin 4.0 (3.4-5.0) gm/dl Urine Color Yellow Urine Appearance Cloudy A (Clear) Urine pH 7.0 (4.5-7.5) Ur Specific [place] 1.020 (1.000-1.030) Urine Protein Negative (Negative) Urine Glucose (UA) Negative (Negative) Urine Ketones Negative (Negative) Urine Blood Trace H (Negative) Urine Nitrite Negative (Negative) Urine Bilirubin Negative (Negative) Urine Urobilinogen Negative (Negative) Ur Leukocyte Esterase Negative (Negative) Urine WBC (Auto) 1-5 (0-5) /hpf Urine RBC (Auto) 5-10 H (0-4) /hpf U Hyaline Cast (Auto) 0 (0-5) /lpf U Epithel Cells (Auto) 20-30 H (0-5) /lpf Urine Bacteria (Auto) Negative (Negative) Blood Type Antibody Screen 10/07/19 10/07/19 Range/Units 06:34 06:34 WBC 12.81 H (4.8-10.8) K/uL RBC 4.05 L (4.2-5.4) M/uL Hgb 12.4 (12.0-16.0) g/dL Hct 37.3 (37-47) % MCV 92.1 (80-100) fL MCH 30.6 (25-34) pg MCHC 33.2 (32-36) g/dL RDW Std Deviation 42.8 (36.4-46.3) fL RDW Coeff of Michelet 12.7 (11.5-14.5) % Plt Count 193 (130-400) K/uL MPV 10.2 (7.4-10.4) fL Immature Gran % (Auto) % Neut % (Auto) % Lymph % (Auto) % Lane % (Auto) % Eos % (Auto) % Baso % (Auto) % Immature Gran # (Auto) (0.00-0.02) K/uL Neut # (Auto) (1.4-6.5) K/uL Lymph # (Auto) (1.2-3.4) K/uL Lane # (Auto) (0.11-0.59) K/uL Eos # (Auto) (0-0.5) K/uL Baso # (Auto) (0-0.2) K/uL PT (9.0-12.0) Seconds INR (0.9-1.1) APTT (21.0-31.0) Seconds PTT Ratio Sodium 137 (136-145) mmol/L Potassium 3.8 (3.5-5.1) mmol/L Chloride 108 H (98-107) mmol/L Carbon Dioxide 23 (21-32) mmol/L Anion Gap 6.0 (3-11) BUN 19 H (7-18) mg/dl Creatinine 0.74 (0.6-1.2) mg/dl Est Cr Clr Drug Dosing 44.2 ml/min Est GFR ( Amer) 86.2 Est GFR (Non-Af Amer) 74.4 BUN/Creatinine Ratio 25.5 H (10-20) Glucose 111 H (70-99) mg/dl Estimat Average Glucose mg/dl Hemoglobin A1c (4.5-5.6) % Calcium 8.5 (8.5-10.1) mg/dl Albumin (3.4-5.0) gm/dl Urine Color Urine Appearance (Clear) Urine pH (4.5-7.5) Ur Specific [place] (1.000-1.030) Urine Protein (Negative) Urine Glucose (UA) (Negative) Urine Ketones (Negative) Urine Blood (Negative) Urine Nitrite (Negative) Urine Bilirubin (Negative) Urine Urobilinogen (Negative) Ur Leukocyte Esterase (Negative) Urine WBC (Auto) (0-5) /hpf Urine RBC (Auto) (0-4) /hpf U Hyaline Cast (Auto) (0-5) /lpf U Epithel Cells (Auto) (0-5) /lpf Urine Bacteria (Auto) (Negative) Blood Type Antibody Screen Total Time Total Time Spent Total Time Spent (In Minutes): 20 Discharge Plan Discharge Items Patient Disposition: Home - Home Health Services Reason For Visit: RIGHT KNEE OSTEOARTHRITIS Discharge Diagnosis: Right knee osteoarthritis Activity: Per Instructions section Weightbearing: Right weightbearing Weightbearing Comment: As tolerated with walker Non-emergency contact: Surgeon Call non-emergency contact if: your pain is not controlled, your temperature is above 101.5, your wound has increased redness and your wound has increased drainage Follow-up/Referrals: PCP,NO [Primary Care Provider] - Diet: Regular Addtl Attending Provider Instructions: DR STRICKLAND has called in your narcotic prescription from the office. It should be ready for pickup. ACTIVITY RECOMMENDATIONS: SELF CARE INSTRUCTIONS AFTER TOTAL KNEE REPLACEMENT A. You may need to continue a physical therapy program after discharge from the hospital. There are several options available to you. Your doctor will assist you in selecting the best one for you. 1. An out-patient facility 2 to 3 times a week for therapy or home therapy. 2. Continue working on all exercises taught to you in the hospital. Your goals should be to increase bending of your knee to 90 degrees and beyond and to fully straighten your knee. B. You may progress at your own pace from walking with a walker or crutches to a cane; then to no assistive devices. C. Make walking a part of your daily routine. Be up as much as comfortable with rest periods throughout the day. Rest with leg elevation is very important. Use the ice wrap frequently for the first 3-4 weeks. D. There are no restrictions on activities. You may ride in a car, shop, participate in precinct police lieutenant and all social activities. E. Wear the long elastic stockings (GAYLE hose) 20 hours a day for 2 weeks after surgery. They can be removed several times a day for laundering and for a bath. F. You may shower, no tub baths until cleared by your doctor. SPECIAL CARE INSTRUCTIONS: VERY IMPORTANT TO READ AND REVIEW A. There are a few signs you need to watch for after you are home. Call [facility] if you notice any of the followin. Increased severe knee pain. Some pain is expected especially when you exercise. 2. Increased swelling in your leg or knee; pain or swelling of the calf muscle in either lower leg. 3. Any fluid drainage from the incision. 4. Shortness of breath or chest pain. B. Please call [facility] at if you have any concerns or questions about your operation or recovery. The doctor or his nurse will return your call promptly. C. You must take antibiotics before dental work, bladder, bowel or other surgery. Your doctor will provide you with a permanent care to carry describing this precaution. IMPORTANT: * REMEMBER TO TAKE ASPIRIN, 81 MG, TWICE DAILY FOR 4 WEEKS UNLESS OTHERWISE DIRECTED. THIS IS YOUR BLOOD THINNER. * HIGH RISK PATIENTS MAY BE PRESCRIBED A STRONGER BLOOD THINNER. THIS WILL BE PROVIDED AT DISCHARGE. * CALL IF INCREASED PAIN, REDNESS, DRAINAGE OR FEVER GREATER THAT 101. * WEAR GAYLE HOSE 20 HOURS PER DAY FOR 2 WEEKS. *Discontinue Chris wrap and cotton roll on 10/08/2019. Continue jose dressing for 7 days from the day of surgery. * JOSE Dressing - This is a large suction dressing covering your incision. This will help pull any excess drainage from the wound and allow your incision to heal properly. You may shower with this if you can keep the unit outside of the shower. If any bleeding or leakage is noted please call your doctor's offic e. This will remain on your incision for 7 days and then should be removed. This can be done yourself or by the home nursing staff if applicable. The entire unit is disposable once removed. Once removed, keep incision clean and dry. If redness or drainage is noted, please call your surgeon. . FOLLOW UP VISIT: If appointment is not already scheduled: Please call [facility] to make a follow-up appointment for 2 weeks after your surgery at . Pending Studies at Discharge: No Stand-Alone Forms: [facility], Opioid Pain Management, Smoking Cessation Medications and DC Order Prescriptions: New sennosides [Senokot] 8.6 mg Tablet 17.2 mg PO HS Qty: 30 RF: 0 aspirin 81 mg Tablet,Delayed Release (Dr/Ec) 81 mg PO BID 30 Days Qty: 60 RF: 0 acetaminophen 500 mg Tablet 1,000 mg PO Q8 14 Days Qty: 84 RF: 0 oxycodone 5 mg Tablet 5 mg PO Q4H MDD 6 PRN (Reason: pain) Qty: 30 RF: 0 oxycodone 5 mg Tablet 5 - 10 mg PO Q4H PRN (Reason: pain) Qty: 20 RF: 0 Continued levothyroxine 75 mcg tablet 75 mcg PO QAM Qty: 90 RF: 3 Hold Instructions: trying armour cod liver oil Capsule 1 cap PO BID RF: 0 potassium 99 mg Tablet 99 mg PO QAM RF: 0 garlic 500 mg Capsule 500 mg PO BID RF: 0 calcium carbonate [Calcium 500] 500 mg calcium (1,250 mg) Tablet 1,000 mg PO BID RF: 0 cholecalciferol (vitamin D3) [Vitamin D3] 5,000 unit Tablet 5,000 unit PO QPM RF: 0 magnesium oxide 400 mg magnesium Capsule 400 mg PO BID RF: 0 Probiotic 3 billion cell Capsule 3,000 mmu cells PO QAM RF: 0 Joint Health 40-10-5-3.3 mg Tablet 1 tab PO BID RF: 0 Cardio Cover 1 tab PO QPM RF: 0 Lung Support 1 tab PO QAM RF: 0 Discontinued acetaminophen [Tylenol Extra Strength] 500 mg tablet 500 mg PO Q8 PRN (Reason: Pain) RF: 0 Discharge Orders: Discharge Order (Routine); Ordered 10/07/19 Ordered By: Pritesh Alfredo/Other Patient Handouts: Knee Arthroscopy, Post-Op Tips: Knee Admission Data Admit Date/Time: 10/06/19 15:38 Attending Provider: Nash Strickland Admit Provider: Nash Strickland Primary Care Provider: PCP,NO Other Interventions: Discharge Summary Assessment (RN) Last Done: 10/07/19 11:10 DC Date/Time DO NOT enter until pt leaves facility: 10/07/19 14:47
== END 2019-10-07 14:47 | disposition home health service (06) | DRG 470 ==
LOC: ASU 10:11 → 3E 15:38